=== PATIENT | male | born 1960 | race Caucasian/White ===

== ENCOUNTER 2016-07-04 16:16 | Emergency (ER) | payer MEDICARE, BC, OTHER ==
[~2016-07-04] VITALS: Ht 175.3 cm; Wt 72.6 kg
[~2016-07-04 16:16] MED LIST: /LOR25TA PO; ALPR1TAB3 PO; AMBI10TA PO; BACL-67 PO; HYDR1SOL PO; RYZOLT PO; SOMA350T PO; VOLT1GEL2 TD; ZANA4CAP PO
[2016-07-04] MEDS ORDERED: NS 1,000 ML IV SCH (17:05)
[2016-07-04] MEDS ORDERED: ONDANSETRON 4MG/2ML VIAL (J2405) IV ONE (17:15)
[2016-07-04] MEDS ORDERED: GI COCKTAIL 50ML BTL(HYOSCYAMINE/MAALOX/LIDOCAINE VISCOUS)(1:3:1) PO ONE (17:15)
[2016-07-04 17:22] LABS: BASO % 0.2 % (0.0-1.0); EOS # 0.1 K/mm3 (0.0-0.50); EOS % 0.8 % (0.0-3.0); LARGE UNSTAINED CELL # 0.2 K/mm3 (0.0-0.4); LARGE UNSTAINED CELL % 1.2 % (0.0-4.0); LYMPH % 14.4 % (24.0-44.0); MEAN CORPUSCULAR HEMOGLOBIN 28.7 pg (27.0-33.0); MEAN CORPUSCULAR HGB CONC 32.2 g/dl (32.0-36.5); MEAN CORPUSCULAR VOLUME 88.9 fl (80.0-96.0); MONO # 0.6 K/mm3 (0.0-0.8); MONO % 4.3 % (0.0-5.0); NEUTROPHILS # 10.9 K/mm3 (1.8-7.7); NEUTROPHILS % 79.1 % (36.0-66.0); PLATELET COUNT, AUTOMATED 278 k/mm3 (150-450); RED CELL DISTRIBUTION WIDTH 14.3 % (11.5-14.5); WHITE BLOOD COUNT 13.8 K/mm3 (4.0-10.0)
[2016-07-04] MEDS ORDERED: GASTROGRAFIN SOLUTION 30ML (Q9963) PO ONE ×2 (17:25→17:55)
[2016-07-04] MEDS: MORPHINE 4 MG/ML 1ML SYRINGE IV PRN ×2 (17:26→18:22)
[2016-07-04 17:28] LABS: INR 0.93
[2016-07-04 17:47] LABS: ALBUMIN 4.5 GM/DL (3.2-5.2); ALBUMIN/GLOBULIN RATIO 1.25 (1.00-1.93); ALKALINE PHOSPHATASE 44 U/L (45-117); ALT/SGPT 25 U/L (12-78); AMYLASE 71 U/L (25-115); ANION GAP 6 MEQ/L (8-16); AST/SGOT 20 U/L (15-37); BILIRUBIN,DIRECT 0.2 MG/DL (0.0-0.2); BLOOD UREA NITROGEN 14 MG/DL (7-18); CALCIUM LEVEL 9.4 MG/DL (8.5-10.1); CARBON DIOXIDE LEVEL 28 MEQ/L (21-32); CHLORIDE LEVEL 104 MEQ/L (98-107); CREATININE FOR GFR 0.81 MG/DL (0.70-1.30); GLOMERULAR FILTRATION RATE > 60.0 (>56); GLUCOSE, FASTING 102 MG/DL (70-105); POTASSIUM SERUM 3.9 MEQ/L (3.5-5.1); SODIUM LEVEL 138 MEQ/L (136-145); TOTAL PROTEIN 8.1 GM/DL (6.4-8.2)
[2016-07-04] MEDS ORDERED: ISOVUE-370 76% 100ML VIAL (Q9967) As Ordered ONE (18:10)
--- NOTE | 2016-07-04 19:37 | REP ---
CT ABDOMEN AND PELVIS WITH IV CONTRAST: REASON: Upper abdominal pain. COMPARISON: None. CONTRAST: 100 mL Isovue-370. The lung bases are clear with the exception of a partially imaged pleural based 4 mm sized nodule. The liver, gallbladder, spleen, pancreas, adrenal glands, and kidneys are within normal limits. Incidental note is made of a tiny 5 mm sized focal area of low density in the posterior segment of the right lobe of the liver too small for CT characterization but likely representing a tiny simple cyst. The abdominal aorta and paraortic regions are within normal limits. The bowel loops and their mesenteries are within normal limits with the exception of a single loop of small bowel in the upper abdomen which is gas filled and mildly dilitated. There is no free fluid or free air. There is no mass or adenopathy. CT PELVIS: The bowel loops and their mesenteries are within normal limits. There is no free fluid or free air. There is no mass or adenopathy. There is corpora amylacea and there are incidental bilateral pelvic phleboliths. Bone window technique throughout the exam shows the osseous structures to be within normal limits for the patient's age. Age related spinal degenerative changes are noted. IMPRESSION: CT findings are within normal limits. It should be stated that there is 1 loop of small bowel in the upper abdomen which is gas filled and mildly dilated. This is nonspecific. This potentially represents a transition possible secondary to a transient area of narrowing. The small bowel is otherwise unremarkable in appearance. Signed by Heath Rao DO 07/04/2016 07:44 P
[2016-07-04] MEDS ORDERED: PANTOPRAZOLE 40MG INJ (PROTONIX) (C9113) IV ONE (19:45)
[2016-07-04] MEDS ORDERED: MORPHINE 4 MG/ML 1ML SYRINGE IV ONE (19:45)
[2016-07-04] MEDS ORDERED: PROT1TAB2 PO (20:47)
[2016-07-04 20:59] VITALS: BP 121/70
--- NOTE | 2016-07-05 14:59 | ED PDOC ---
Post-Departure Follow-Up dr ragsdale faxed formal report of ct abd/p for fu Sandra Carbajal MD Jul 05, 2016 14:59
--- NOTE | 2016-07-06 09:07 | ECGEPIP ---
Stationary ECG Study [facility] - ED Test Date: 2016-07-04 Pat Name: AKIRA BRIZUELA Department: Room: - Gender: M Uniformer: tk : 1960 Requested By: AKIRA Hill Order Number: [id number] Reading MD: Jaki Aguilar Measurements Intervals Diamond Rate: 62 P: 71 NE: 142 QRS: 58 QRSD: 106 T: 42 QT: 414 QTc: 422 Interpretive Statements SINUS RHYTHM POSSIBLE LEFT VENTRICULAR HYPERTROPHY NSTTW ABNORMALITY SIMILAR 12/03/15 Electronically Signed On 07-06-2016 9:07:17 EDT by Jaki Aguilar
== END 2016-07-04 21:01 | disposition home or self-care (01) ==
LOC: M ED 17:26
DX: R10.13 Epigastric pain (principal)
CPT/HCPCS: 74177; 80048; 80076; 82150; 82550; 82553; 83690; 84484; 85025; 85610; 85730; 93005; 93041; 94760; 96361; 96374; 96375; 96376; 99285; C9113; J2405; Q9963; Q9967

== ENCOUNTER → 2016-09-24 | Outpatient (CLI) | payer MEDICARE, BC, OTHER ==
[~2016-09-24] MED LIST changes: -BACL-67 PO; +BACL1TAB9 PO; +E-Z-GAS II EFFERVESCENT PACKET (SODIUM BICARB./CITRIC ACID/SIMETHICONE) As Ordered ONE; +E-Z-HD 98% w/w 340GM SUSP BTL As Ordered ONE; +E-Z-PAQUE 96% w/w SUSP 176GM BTL As Ordered ONE; +PROT1TAB2 PO
--- NOTE | 2016-09-25 09:49 | REP ---
Clinical: dysphagia and gastroesophageal reflux. Technique: Single contrast and double contrast technique using barium sulfate substrates. Findings: Normal motility through the oropharynx and hypopharynx is appreciated without obvious mass/mass effect or contour abnormality. The esophagus demonstrates normal mucosal outline and distension without ulcerations, polyps, mass lesions, mucosal irregularities or extrinsic abnormalities. No areas of stenosis or stricture appreciated. No hiatal hernia or evidence for reflux during examination. Limited evaluation of the stomach demonstrates normal gastric rugal folds. Total fluoroscopic time: 1 minute 21 seconds . Impression: Normal esophagram/barium swallow study. Signed by Micah Desai MD 09/25/2016 09:40 A
== END ==
LOC: M RAD 08:37
PROVIDERS: ATTEND Otolaryngology
DX: K21.9 Gastro-esophageal reflux disease without esophagitis (principal)

== ENCOUNTER → 2016-09-30 | Outpatient (CLI) | payer MEDICARE, BC, OTHER ==
[~2016-09-30] MED LIST changes: -E-Z-GAS II EFFERVESCENT PACKET (SODIUM BICARB./CITRIC ACID/SIMETHICONE) As Ordered ONE; -E-Z-HD 98% w/w 340GM SUSP BTL As Ordered ONE; -E-Z-PAQUE 96% w/w SUSP 176GM BTL As Ordered ONE; +ISOVUE-370 76% 100ML VIAL (Q9967) As Ordered ONE
--- NOTE | 2016-09-30 09:55 | REP ---
CT CHEST WITH IV CONTRAST : TECHNIQUE: Axial contrast enhanced images from the thoracic inlet to the upper abdomen using 100 mL Isovue 370 intravenous contrast material with multiplanar reformations. Comparison CT 07/04/2016. The nodular opacity previously seen in the left lung base represents linear subpleural scarring in the left lower lobe. In the left apex there is a tiny calcified granuloma. In the right lung along the major fissure on image 76 is an insignificant 2 mm nodular opacity. There is a calcified granuloma in the right middle lobe. There are two calcified granulomas in the right lower lobe. There are other scattered minor linear areas of scarring. No suspicious nodular opacities are seen. Normal sized lymph nodes are seen in the mediastinal and hilar regions with significant adenopathy. Heart is normal in size. There is no pleural or pericardial effusion. Thoracic aorta is normal in size with no aneurysm or dissection. Visualized upper abdominal structures are unremarkable. IMPRESSION: Chronic changes in the lungs with no suspicious nodular opacities. Signed by Isaias Noel MD 09/30/2016 04:24 P
== END ==
LOC: M RAD 08:01
PROVIDERS: ATTEND Thoracic Surgery (Cardiothoracic Vascular Surgery)
DX: R91.1 Solitary pulmonary nodule (principal)
CPT/HCPCS: 71260; Q9967

== ENCOUNTER → 2016-10-15 | Outpatient (CLI) | payer MEDICARE, OTHER ==
[~2016-10-15] MED LIST changes: -ISOVUE-370 76% 100ML VIAL (Q9967) As Ordered ONE
--- NOTE | 2016-11-02 23:26 | ECWPNPC ---
PATIENT NAME: AKIRA BRIZUELA : 1960 GENDER: MALE VISIT DATE: 10/15/2016 DISCHARGE DATE: 10/15/16 1358 VISIT LOCKED DATE TIME: PHYSICIAN: BRENNA CLEMENTS RESOURCE: BRENNA CLEMENTS REASON FOR APPOINTMENT 1. BACK PAIN HISTORY OF PRESENT ILLNESS NEW PATIENT CONSULT: WHEN DID YOUR PAIN FIRST START? . BRIEFLY DESCRIBE HOW YOUR PAIN STARTED? . HOW DOES YOUR PAIN CHANGE WITH TIME? . DOES YOUR PAIN AWAKEN YOU FROM SLEEP? . HOW MANY HOURS OF SLEEP DO YOU NORMALLY GET? . ANY DIAGNOSTIC TESTING? . FACILITY WHERE TESTS WERE DONE? ____. PAIN TREATMENT TREATMENT YES CANCER HAVE YOU EVER HAD ANY TYPE OF CANCER?NO NO. 56 YEAR OLD MALE PATIENT WITH HISTORY OF CHRONIC LOW BACK PAIN. PATIENT DESCRIBES THE PAIN ACHING AND BURNING WITH A PAIN SCORE OF 5/10. MR. BRIZUELA REPORTS HIS PAIN STARTING MANY YEARS AGO AND SINCE THEN HAS HAD 4 BACK SURGERIES AND STATES THEY DID NOT HELP. PATIENT IS CURRENTLY USING BACLOFEN AND HYDROCODONE FOR PAIN MANAGEMENT. MR. BRIZUELA STATES THAT SITTING AND LAYING DOWN INCREASES THE PAIN THE MOST BUT WALKING HELPS TO RELIEVE THE PAIN. PATIENT STATES PHYSICAL THERAPY HAS NOT HELPED IN THE PAST AND REPORTS HE IS A CANDIDATE FOR SURGERY. PATIENT DENIES UNEXPLAINABLE WEIGHT LOSS, FEVER, CHILLS, NEW CHANGES ON HIS URINARY OR BOWEL CONTROL. PAIN SCREENING: PATIENT HAS A COMPLAINT OF ACUTE OR CHRONIC PAIN :YES FALL RISK SCREENING: SCREENING :NO FALLS IN THE PAST YEAR SOLIMAN INVENTORY: QUESTIONNAIRE ASSESSEDTBD SCORE VALUE CALCULATED TBD CURRENT MEDICATIONS TAKING XANAX 1 MG TABLET 1 TABLET ORALLY ONCE DAILY TAKING HYDROCODONE-ACETAMINOPHEN 10-325 MG TABLET 1 TABLET NEEDED ORALLY FOUR TIMES DAILY NEEDED TAKING BACLOFEN 10 MG TABLET 1 TABLET WITH FOOD OR MILK ORALLY THREE TIMES A DAY TAKING CELECOXIB 200 MG CAPSULE 1 CAPSULE WITH FOOD ORALLY TWICE DAILY MEDICATION LIST REVIEWED AND RECONCILED WITH THE PATIENT PAST MEDICAL HISTORY ARTHRITIS LOW BACK PAIN HEART [facility] SOCIAL HISTORY GENERAL: PAIN CLINIC PFS, CLERGY, PUBLIC HEALTH REFERRALS CLERGY REFERRAL NEEDED?NO WAS THE PROVIDER NOTIFIED OF ANY PERTINENT INFO?NO PFS REFERRAL NEEDED?NO PUBLIC HEALTH REFERRAL NEEDED?NO PATIENT: ____. REVIEW OF SYSTEMS REVIEWED BY: PROVIDER: BRENNA CLEMENTS MD . CONSTITUTIONAL: ANY CHANGE IN YOUR MEDICAL CONDITION? NO . CHILLS NO . FEVER NO . INFECTION: DO YOU HAVE NEW INFECTIONS? NO . DO YOU HAVE HISTORY OF MRSA? NO . MUSCULOSKELETAL: ANY NEW PATTERNS OF PAIN OR NUMBNESS? YES . SYTEMIC LUPUS NO . GASTROENTEROLOGY: ANY NEW CHANGE IN BOWEL CONTROL? NO . BARRETTS ESOPHAGUS NO . CIRRHOSIS NO . HEPATITIS NO . LIVER FAILURE NO . ACID REFLUX NO . UNEXPLAINED WEIGHT LOSS NO . GENITOURINARY: ANY NEW CHANGE IN BLADDER CONTROL? NO . IS THERE A CHANCE YOU COULD BE ? NO . HEMATOLOGY/LYMPH: DO YOU TAKE ANY BLOOD THINNERS? (FOR EXAMPLE- COUMADIN, PLAVIX, AGGRENOX, PLATEL, PRADAXA, OR XARELTO) NO . WHEN WAS YOUR LAST DOSE? DATE: TIME: . LOW PLATELET COUNT NO . SICKLE CELL DISEASE NO . VON WILLIEBRANDS NO . FACTOR V LEIDEN NO . THALLASEMIA NO . ANEMIA NO . EASY BRUISING NO . NEUROLOGY: HAVE YOU FALLEN IN THE PAST 6 MONTHS? NO . ANY NEW EXTREMITY NUMBNESS OR WEAKNESS? YES,RIGHT LEG AND ELBOW . HEAD INJURY NO . DEMENTIA NO . CEREBRAL PALSY NO . MULTIPLE SCLEROSIS NO . DIZZINESS NO . HEADACHE NO . STROKES NO . VERTIGO NO . CARDIOLOGY: DO YOU HAVE A PACEMAKER OR DEFIBRILLATOR? NO . ANGINA NO . HEART ATTACK NO . HEART SURGERY NO . CONGESTIVE HEART FAILURE/FLUID OVERLOAD NO . CHEST PAIN NO . HIGH BLOOD PRESSURE NO . IRREGULAR HEART BEAT NO . RESPIRATORY: HAVE YOU BEEN SICK IN THE PAST WEEK? NO . FEVER NO . FLU LIKE SYMPTOMS? NO . CPAP NO . BYPAP NO . ASTHMA NO . EMPHYSEMA NO . CHRONIC LUNG DISEASES NO . SHORTNESS OF BREATH ON EXERTION NO . DO YOU USE ANY TYPE OF TOBACCO (SMOKE, SMOKELESS, CHEW)? YES . COUGH YES, PRODUCTIVE, CLEAR SPUTUM . SNORING NO . INTEGUMENTARY: DO YOU HAVE ANY RASHES OR OPEN SORES? NO . ALLERGIC/IMMUNO: ARE YOU ALLERGIC TO SHELLFISH OR IV DYE? NO . ANY NEW ALLERGIES? NO . PSYCHIATRIC: DO YOU HAVE THOUGHTS OF HURTING YOURSELF OR SOMEONE ELSE? NO . ARE YOU ABUSED, NEGLECTED, OR IN AN UNSAFE ENVIRONMENT? NO . ENDOCRINOLOGY: ARE YOU DIABETIC? NO . THYROID DISORDER NO . OTHER: DO YOU NEED ANY PRESCRIPTIONS? NO . IF YES, PLEASE LIST: ____ . ANY NEW PROBLEMS WITH YOUR MEDICATIONS? NO . WHEN DID YOU LAST EAT? ____ . WHEN DID YOU LAST DRINK? ____ . WHAT DID YOU LAST DRINK? ____ . NAME OF PERSON DRIVING YOU HOME? ____ . DO YOU HAVE ANY OTHER QUESTIONS OR CONCERNS NO . VITAL SIGNS WT 164.6 LBS, HT 69", BMI 24.30 INDEX, BP 142/79 MM HG, HR 83 /MIN, RR 16 /MIN, TEMP 98.6 F, OXYGEN SAT % 98%, NA INITIALS TL 1303, REVIEWED BY: VD. EXAMINATION : PATIENT IS ALERT O X 3 AND COOPERATIVE. TENDERNESS IN THE LOWER BACK AND PARASPINAL MUSCLE GROUP. MRI OF THE LUMBAR SPINE DONE ON 09/24/16 SHOWS POST OPERATIVE CHANGES, PARS DEFECT AT L4-L5, AND DISC PROTRUSION AT L2-L3. ASSESSMENTS POSTLAMINECTOMY SYNDROME, NOT ELSEWHERE CLASSIFIED - M96.1 (PRIMARY) INTERVERTEBRAL DISC DISORDERS WITH RADICULOPATHY, LUMBAR REGION - M51.16 TREATMENT POSTLAMINECTOMY SYNDROME, NOT ELSEWHERE CLASSIFIED NOTES: WE DISCUSSED SEVERAL ISSUES WITH MR. BRIZUELA'S PAIN MANAGEMENT CASE. AT THIS TIME THE PATIENT WILL CONTINUE WITH THE SAME MEDICATION REGIME BEFORE. AT THIS TIME I WOULD LIKE TO DISCUSS THE PATIENT'S CASE WITH THE NEUROSURGEON HE STATES HE IS A CANDIDATE FOR ANOTHER SURGERY BUT WOULD LIKE TO TRY INTERVENTIONS PRIOR TO SURGERY. AFTER I DISCUSS THE CASE WITH THE NEUROSURGEON I WOULD LIKE THE PATIENT TO RETURN TO THE CLINIC IS 2 WEEKS. INSTRUCTIONS WERE GIVEN, QUESTIONS WERE ANSWERED, PATIENT REPORTS UNDERSTANDING AND AGREES WITH THE PLAN. I, MANDA BRYAN, DOCUMENTED THE ABOVE INFORMATION ACTING A SCRIBE FOR DR. CLEMENTS. I HAVE REVIEWED THE ABOVE DOCUMENT, WRITTEN BY MANDA KING AND I VERIFY THAT IT IS ACCURATE. DEAR DR. ABURTO:THANK YOU FOR YOUR KIND REFERRAL OF MR. BRIZUELA. YOU WANT TO DISCUSS HER CASE WITH ME PLEASE CALL ME AT THE PAIN CENTER AT [phone]. SINCERELY,BRENNA CLEMENTS, [facility]. PROCEDURE CODES FA211 ESTABILISHED PATIENT [facility] CHARGE [id number] DOC MEDS VERIFIED W/PT OR RE U1442 PAIN ASSESS POS TOOL F/U PLAN DOC DISPOSITION & COMMUNICATION FOLLOW UP 3 WEEKS ELECTRONICALLY SIGNED BY BRENNA CLEMENTS MD ON 11/02/2016 AT 08:14 AM EDT DISCLAIMER : THIS IS A VISIT SUMMARY EXTRACTED FROM THE [employer] CHART. IT IS NOT A COPY OF THE [employer] PROGRESS NOTE. DAINA
== END ==
LOC: M PAIN 12:40
PROVIDERS: ATTEND Anesthesiology
DX: M96.1 Postlaminectomy syndrome, not elsewhere classified (principal); M51.16 Intervertebral disc disorders with radiculopathy, lumbar region; M19.90 Unspecified osteoarthritis, unspecified site; F17.200 Nicotine dependence, unspecified, uncomplicated; Z79.899 Other long term (current) drug therapy

== ENCOUNTER → 2016-10-28 | Outpatient (CLI) | payer MEDICARE, BC, OTHER ==
--- NOTE | 2016-11-11 00:32 | ECWPNPC ---
PATIENT NAME: AKIRA BRIZUELA : 1960 GENDER: MALE VISIT DATE: 10/28/2016 DISCHARGE DATE: 10/28/16 1641 VISIT LOCKED DATE TIME: PHYSICIAN: BRENNA CLEMENTS RESOURCE: BRENNA CLEMENTS REASON FOR APPOINTMENT 1. BACK PAIN HISTORY OF PRESENT ILLNESS HISTORY OF PRESENT ILLNESS: PAIN THE PATIENT DESCRIBES THE PAIN... 56 YEAR OLD MALE PATIENT WITH HISTORY OF CHRONIC LOW BACK PAIN. PATIENT DESCRIBES THE PAIN ACHING AND BURNING WITH A PAIN SCORE OF 5/10. MR. BRIZUELA REPORTS HIS PAIN STARTING MANY YEARS AGO AND SINCE THEN HAS HAD 4 BACK SURGERIES AND STATES THEY DID NOT HELP. PATIENT IS CURRENTLY USING BACLOFEN AND HYDROCODONE FOR PAIN MANAGEMENT. MR. BRIZUELA STATES THAT SITTING AND LAYING DOWN INCREASES THE PAIN THE MOST BUT WALKING HELPS TO RELIEVE THE PAIN. PATIENT STATES PHYSICAL THERAPY HAS NOT HELPED IN THE PAST AND REPORTS HE IS A CANDIDATE FOR SURGERY. PATIENT DENIES UNEXPLAINABLE WEIGHT LOSS, FEVER, CHILLS, NEW CHANGES ON HIS URINARY OR BOWEL CONTROL. FALL RISK SCREENING: SCREENING :NO FALLS IN THE PAST YEAR CURRENT MEDICATIONS TAKING XANAX 1 MG TABLET 1 TABLET ORALLY ONCE DAILY TAKING HYDROCODONE-ACETAMINOPHEN 10-325 MG TABLET 1 TABLET NEEDED ORALLY FOUR TIMES DAILY NEEDED TAKING BACLOFEN 10 MG TABLET 1 TABLET WITH FOOD OR MILK ORALLY THREE TIMES A DAY TAKING CELECOXIB 200 MG CAPSULE 1 CAPSULE WITH FOOD ORALLY TWICE DAILY MEDICATION LIST REVIEWED AND RECONCILED WITH THE PATIENT PAST MEDICAL HISTORY ARTHRITIS LOW BACK PAIN HEART [facility] ALLERGIES N.K.D.A. REVIEW OF SYSTEMS REVIEWED BY: PROVIDER: BRENNA CLEMENTS MD . CONSTITUTIONAL: ANY CHANGE IN YOUR MEDICAL CONDITION? NO . CHILLS NO . FEVER NO . INFECTION: DO YOU HAVE NEW INFECTIONS? NO . DO YOU HAVE HISTORY OF MRSA? NO . MUSCULOSKELETAL: ANY NEW PATTERNS OF PAIN OR NUMBNESS? YES, LEFT LEG JUMPS AND SPASMS AND SHOOTING PAIN. . GASTROENTEROLOGY: ANY NEW CHANGE IN BOWEL CONTROL? NO . GENITOURINARY: ANY NEW CHANGE IN BLADDER CONTROL? NO . IS THERE A CHANCE YOU COULD BE ? NO . HEMATOLOGY/LYMPH: DO YOU TAKE ANY BLOOD THINNERS? (FOR EXAMPLE- COUMADIN, PLAVIX, AGGRENOX, PLATEL, PRADAXA, OR XARELTO) NO . WHEN WAS YOUR LAST DOSE? DATE: TIME: . NEUROLOGY: HAVE YOU FALLEN IN THE PAST 6 MONTHS? NO . ANY NEW EXTREMITY NUMBNESS OR WEAKNESS? NO . CARDIOLOGY: DO YOU HAVE A PACEMAKER OR DEFIBRILLATOR? NO . RESPIRATORY: HAVE YOU BEEN SICK IN THE PAST WEEK? NO . FEVER NO . FLU LIKE SYMPTOMS? NO . COUGH NO . INTEGUMENTARY: DO YOU HAVE ANY RASHES OR OPEN SORES? NO . ALLERGIC/IMMUNO: ARE YOU ALLERGIC TO SHELLFISH OR IV DYE? NO . ANY NEW ALLERGIES? NO . PSYCHIATRIC: DO YOU HAVE THOUGHTS OF HURTING YOURSELF OR SOMEONE ELSE? NO . ARE YOU ABUSED, NEGLECTED, OR IN AN UNSAFE ENVIRONMENT? NO . ENDOCRINOLOGY: ARE YOU DIABETIC? NO . OTHER: DO YOU NEED ANY PRESCRIPTIONS? NO . IF YES, PLEASE LIST: ____ . ANY NEW PROBLEMS WITH YOUR MEDICATIONS? NO . WHEN DID YOU LAST EAT? ____ . WHEN DID YOU LAST DRINK? ____ . WHAT DID YOU LAST DRINK? ____ . NAME OF PERSON DRIVING YOU HOME? ____ . DO YOU HAVE ANY OTHER QUESTIONS OR CONCERNS YES, WHAT DID MY MRI SAY? . VITAL SIGNS WT 157.0 LBS, HT 69", BMI 23.18 INDEX, BP 130/87 MM HG, HR 80 /MIN, RR 16 /MIN, TEMP 99.4 F, OXYGEN SAT % 98%, NA INITIALS AW 1517, REVIEWED BY: RIK. EXAMINATION : PATIENT IS ALERT O X 3 AND COOPERATIVE. TENDERNESS IN THE LOWER BACK AND PARASPINAL MUSCLE GROUP. PATIENT REPORTS RIGHT LEG NUMBNESS. RIGHT LEG WEAKER THEN THE LEFT AT EXTENSION AND FLEXION. MRI OF THE LUMBAR SPINE DONE ON 09/24/16 SHOWS POST OPERATIVE CHANGES, PARS DEFECT AT L4-L5, AND DISC PROTRUSION AT L2-L3. 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 BRIZUELA'S PAIN MANAGEMENT CASE. AT THIS TIME THE PATIENT WILL CONTINUE WITH THE SAME MEDICATION REGIME BEFORE. AFTER SPEAKING WITH DR. ABURTO WE AGREED THAT THE BEST APPROACH TO AID THE PATIENT IN PAIN RELIEF WOULD BE TO MOVE FORWARD WITH A LUMBAR TRANSFORAMINAL. WE DISCUSSED DOING THE TRANSFORAMINAL AT LEVELS L3 AND L4. WE DISCUSSED THE RISKS, BENEFITS, AND ALTERNATIVES OF THE INJECTION AND AT THIS TIME THE PATIENT WOULD LIKE TO PROCEED. WE ALSO DISCUSSED THE POSSIBILITY OF DOING A FACET BLOCK. WE WILL DECIDE THE DAY OF THE INJECTION. INSTRUCTIONS WERE GIVEN, QUESTIONS WERE ANSWERED, PATIENT REPORTS UNDERSTANDING AND AGREES WITH THE PLAN. I, MANDA BRYAN, DOCUMENTED THE ABOVE INFORMATION ACTING A SCRIBE FOR DR. CLEMENTS. I HAVE REVIEWED THE ABOVE DOCUMENT, WRITTEN BY MANDA KING AND I VERIFY THAT IT IS ACCURATE. PROCEDURE CODES FA211 ESTABILISHED PATIENT [facility] CHARGE G8427 DOC MEDS VERIFIED W/PT OR RE G8730 PAIN ASSESS POS TOOL F/U PLAN DOC DISPOSITION & COMMUNICATION FOLLOW UP 3 WEEKS ELECTRONICALLY SIGNED BY BRENNA CLEMENTS MD ON 11/10/2016 AT 04:24 PM EDT DISCLAIMER : THIS IS A VISIT SUMMARY EXTRACTED FROM THE [employer] CHART. IT IS NOT A COPY OF THE [employer] PROGRESS NOTE. MTDD
== END ==
LOC: M PAIN 15:20
PROVIDERS: ATTEND Anesthesiology
DX: M96.1 Postlaminectomy syndrome, not elsewhere classified (principal); M51.16 Intervertebral disc disorders with radiculopathy, lumbar region; M47.816 Spondylosis without myelopathy or radiculopathy, lumbar region; G89.29 Other chronic pain; M54.5 Low back pain; Z79.891 Long term (current) use of opiate analgesic; Z79.899 Other long term (current) drug therapy; Z79.1 Long term (current) use of non-steroidal anti-inflammatories (NSAID)

== ENCOUNTER → 2016-11-10 | Outpatient (CLI) | payer MEDICARE, BC, OTHER ==
[~2016-11-10] MED LIST changes: +BUPIVACAINE HCL 0.25% 30 ML VIAL As Ordered ONE; +ISOVUE-M 300 61% 15ML VIAL (Q9967) As Ordered ONE; +LIDOCAINE 1% SDV INJ 30 ML VIAL As Ordered ONE; +MIDAZOLAM INJ 2 MG/2 ML VIAL (J2250) As Ordered ONE; +TRIAMCINOLONE ACETONIDE SUSP 40 MG/ML VIAL (J3301) As Ordered ONE; +fentaNYL 100 MCG/2 ML INJECTION (J3010) As Ordered ONE
--- NOTE | 2016-11-10 15:11 | REP ---
PARTIAL LUMBAR SPINE SERIES: Two views. HISTORY: Injection procedure for pain. 22 seconds of fluoroscopy time for FINDINGS: A sequence of two last image hold fluoro spot radiographs of the lumbar spine document various needle positions and contrast injections associated with injection procedure. Signed by Johnny Hutchins MD 11/10/2016 03:36 P
--- NOTE | 2016-11-24 23:31 | ECWPNPC ---
PATIENT NAME: AKIRA BRIZUELA : 1960 GENDER: MALE VISIT DATE: 11/10/2016 DISCHARGE DATE: 11/10/16 1519 VISIT LOCKED DATE TIME: PHYSICIAN: BRENNA CLEMENTS RESOURCE: BRENNA CLEMENTS REASON FOR APPOINTMENT 1. BILATERAL LOW BACK FACET BLOCK THERAPEUTIC HISTORY OF PRESENT ILLNESS HISTORY OF PRESENT ILLNESS: PAIN THE PATIENT DESCRIBES THE PAIN... FALL RISK SCREENING: SCREENING :NO FALLS IN THE PAST YEAR CURRENT MEDICATIONS TAKING XANAX 1 MG TABLET 1 TABLET ORALLY ONCE DAILY, NOTES: 11/09/16 0200 1/2 TAB TAKING HYDROCODONE-ACETAMINOPHEN 10-325 MG TABLET 1 TABLET NEEDED ORALLY FOUR TIMES DAILY NEEDED, NOTES: 11/10/16 1000 TAKING BACLOFEN 10 MG TABLET 1 TABLET WITH FOOD OR MILK ORALLY THREE TIMES A DAY, NOTES: 11/10/16 1000 DISCONTINUED CELECOXIB 200 MG CAPSULE 1 CAPSULE WITH FOOD ORALLY TWICE DAILY MEDICATION LIST REVIEWED AND RECONCILED WITH THE PATIENT PAST MEDICAL HISTORY ARTHRITIS LOW BACK PAIN HEART [facility] SOCIAL HISTORY GENERAL: TOBACCO USE ARE YOU A:CURRENT SMOKER HOW MANY CIGARETTES A DAY DO YOU SMOKE?6-10 HOW SOON AFTER YOU WAKE UP DO YOU SMOKE YOUR FIRST CIGARETTE?31-60 MIN HOW OFTEN DO YOU SMOKE CIGARETTES?EVERY DAY PATIENT COUNSELED ON THE DANGERS OF TOBACCO USE AND URGED TO QUIT:11/10/2016 ARE YOU INTERESTED IN QUITTING?THINKING ABOUT QUITTING PREVIOUS QUIT ATTEMPTS?YES, MORE THAN 6 MONTHS AGO. COUNSELED THE PATIENT ON SMOKING CESSATION, EDUCATION [id number] ALCOHOL SCREENING POINTS: 1, INTERPRETATION: NEGATIVE. RECREATIONAL DRUG USE DENIES. CAFFEINE 1 CUP DAILY. SEXUAL HX HAD SEX IN THE LAST 12 MONTHS (VAGINAL, ORAL, OR ANAL)?: YES, WITH: WOMEN ONLY, USE PROTECTION?: NO, HAVE YOU EVER HAD AN STD?: NO. HIV / HEP-C SCREENING HIV TEST OFFERED TO PATIENT:YES DATE OFFERED:07/04/2016 TEST ACCEPTED:NO REASON:PATIENT DECLINED HEP-C TEST OFFERED TO PATIENT:YES DATE OFFERED:07/04/2016 TEST ACCEPTED:NO REASON:PATIENT DECLINED OCCUPATION: RETIRED [employer] TE[employer]. DIET: REGULAR. EXERCISE: TRIES TO DAILY. MARITAL STATUS: . SPIRITISM NO MOSQUE BELIEFS THAT WOULD IMPACT HEALTH CARE. LANGUAGE GEORGIAN. LEARNING BARRIERS / SPECIAL NEEDS BARRIERS TO LEARNING?NO HEARING IMPAIRED?NO VISION IMPAIRED?YES :CORRECTIVE LENSES GLASSES COGNITIVELY IMPAIRED?NO READINESS TO LEARN?YES LEARNING PREFERENCES?NO LEARNING CAPABILITIES PRESENT?YES EMOTIONAL BARRIERS?NO SPECIAL DEVICES?NO SUBSTITUTE BUS DRIVER NEEDED?NO TRAVEL OUTSIDE US: DENIES. DOMESTIC VIOLENCE NONE. REVIEW OF SYSTEMS REVIEWED BY: PROVIDER: . CONSTITUTIONAL: ANY CHANGE IN YOUR MEDICAL CONDITION? NO . CHILLS NO . FEVER NO . INFECTION: DO YOU HAVE NEW INFECTIONS? NO . DO YOU HAVE HISTORY OF MRSA? NO . MUSCULOSKELETAL: ANY NEW PATTERNS OF PAIN OR NUMBNESS? NO . GASTROENTEROLOGY: ANY NEW CHANGE IN BOWEL CONTROL? NO . GENITOURINARY: ANY NEW CHANGE IN BLADDER CONTROL? NO . IS THERE A CHANCE YOU COULD BE ? NO . HEMATOLOGY/LYMPH: DO YOU TAKE ANY BLOOD THINNERS? (FOR EXAMPLE- COUMADIN, PLAVIX, AGGRENOX, PLATEL, PRADAXA, OR XARELTO) NO . WHEN WAS YOUR LAST DOSE? DATE: TIME: . NEUROLOGY: HAVE YOU FALLEN IN THE PAST 6 MONTHS? YES, FELL DOWN THE STAIRS LAST WEEK . ANY NEW EXTREMITY NUMBNESS OR WEAKNESS? NO . CARDIOLOGY: DO YOU HAVE A PACEMAKER OR DEFIBRILLATOR? NO . RESPIRATORY: HAVE YOU BEEN SICK IN THE PAST WEEK? NO . FEVER NO . FLU LIKE SYMPTOMS? NO . COUGH NO . INTEGUMENTARY: DO YOU HAVE ANY RASHES OR OPEN SORES? YES, ABRASION LEFT INNER ELBOW AND SMALL SCAB LEFT LEONARD . ALLERGIC/IMMUNO: ARE YOU ALLERGIC TO SHELLFISH OR IV DYE? NO . ANY NEW ALLERGIES? NO . PSYCHIATRIC: DO YOU HAVE THOUGHTS OF HURTING YOURSELF OR SOMEONE ELSE? NO . ARE YOU ABUSED, NEGLECTED, OR IN AN UNSAFE ENVIRONMENT? NO . ENDOCRINOLOGY: ARE YOU DIABETIC? NO . OTHER: DO YOU NEED ANY PRESCRIPTIONS? NO . IF YES, PLEASE LIST: ____ . ANY NEW PROBLEMS WITH YOUR MEDICATIONS? NO . WHEN DID YOU LAST EAT? 11/09 2099 . WHEN DID YOU LAST DRINK? 11/09 2099 . WHAT DID YOU LAST DRINK? WATER . NAME OF PERSON DRIVING YOU HOME? -KALEIGH . DO YOU HAVE ANY OTHER QUESTIONS OR CONCERNS NO . VITAL SIGNS WT 160 LBS, HT 69", BMI 23.63 INDEX, BP 107/64 MM HG, HR 55 /MIN, RR 16 /MIN, TEMP 98.4 F, OXYGEN SAT % 95%, NA INITIALS SC 13:35, REVIEWED BY: AD. ASSESSMENTS SPONDYLOSIS WITHOUT MYELOPATHY OR RADICULOPATHY, LUMBAR REGION - M47.816 (PRIMARY) SPONDYLOSIS WITHOUT MYELOPATHY OR RADICULOPATHY, LUMBOSACRAL REGION - M47.817 PROCEDURES PN LUMBAR FACET BLOCK THERAPEUTIC PRE PROCEDURE DIAGNOSIS LUMBAR SPONDYLOSIS, LUMBOSACRAL SPONDYLOSIS POST PROCEDURE DIAGNOSIS LUMBAR SPONDYLOSIS, LUMBOSACRAL SPONDYLOSIS PROCEDURE BILATERAL L4-L5 AND BILATERAL L5-S1 LUMBAR FACET THERAPEUTIC BLOCK SURGEON DR. BRENNA LCEMENTS GAS ADJUSTER NONE ANESTHESIA LOCAL WITH IV SEDATION PRE PROCEDURE NOTE THE PATIENT HAS A HISTORY OF CHRONIC LOW BACK PAIN. I EVALUATE THE PATIENT AND REVIEWED THE CHART. I WENT OVER THE RISKS, ALTERNATIVES, AND BENEFITS ASSOCIATED WITH THIS PROCEDURE. PATIENT WOULD LIKE TO MOVE FORWARD WITH IV SEDATION DUE TO DISCOMFORT, PAIN AND ANXIETY ASSOCIATED WITH THE PROCEDURE. THE PATIENT WOULD LIKE TO PROCEED AND GIVE CONSENT TO PERFORMED THE PROCEDURE. THE PATIENT DENIES UNEXPLAINABLE WEIGHT LOSS, FEVER, CHILLS, OR NEW CHANGES IN URINARY OR BOWEL CONTROL DESCRIPTION OF PROCEDURE THE PATIENT WAS BROUGHT TO THE PROCEDURE ROOM AND PLACED IN THE PRONE POSITION. THE LUMBOSACRAL AREA WAS CLEANED WITH CHLORAPREP SOLUTION AND DRAPED ASEPTICALLY. THE PROCEDURE WAS DONE UNDER STERILE CONDITIONS. I CHECKED LATERALITY AND THE LEVEL WHERE THE PROCEDURE WAS GOING TO BE PERFORMED WITH THE PATIENT AND THE SUPPORTING STAFF AT THE MOMENT OF THE TIME OUT IN THE PROCEDURE ROOM. UNDER FLUOROSCOPIC GUIDANCE, THE TARGET POINT WAS SELECTED AT THE RIGHT AND LEFT L4-L5 AND RIGHT AND LEFT L5-S1 FACET JOINT. TARGET POINT WAS SELECTED AFTER LATERAL ROTATION AND TILT OF THE MAGNIFIER OF THE C-ARM. LIDOCAINE 0.5% WAS USED TO NUMB THE SKIN AND THE SUBCUTANEOUS TISSUE BELOW IT. SPINAL NEEDLES, 22-GAUGE, WERE ADVANCED UNDER FLUOROSCOPIC GUIDANCE AND FOLLOWING PATIENT FEEDBACK UNTIL THE TARGETS WERE TOUCHED. THE POSITION OF THE NEEDLES WAS VERIFIED WITH AP AND LATERAL VIEWS. AFTER PROPER POSITION OF THE NEEDLES WAS ACHIEVED, ISOVUE-M DYE 30% 0.1 ML WAS INJECTED SHOWING ADEQUATE SPREAD OF THE DYE. THEN A SOLUTION OF 1.9 ML OF BUPIVACAINE 0.125% OF KENALOG 10 MG WAS INJECTED AT EACH SITE. PATIENT RECEIVED VERSED 3 MG AND FENTANYL 100 MCG IV DIVIDED DOSES. THERE WAS NO EVIDENCE OF BLOOD, PARESTHESIA OR CEREBROSPINAL FLUID DURING THE PROCEDURE. THE PATIENT WAS SENT TO THE RECOVERY ROOM. THE PATIENT WAS MOVING THE EXTREMITIES AND DOING WELL. THERE WAS NO COMPLICATION DURING THE PROCEDURE. FLUOROSCOPY TIME WAS 22 SECONDS. FACE TO FACE TIME WAS 18 MINUTES POST PROCEDURE NOTE THE PATIENT WILL BE SEEN IN A FOLLOW UP IN THE NEXT FEW WEEKS. INSTRUCTIONS WERE GIVEN, QUESTIONS WERE ANSWERED, AND THE PATIENT EXPRESSED UNDERSTANDING AND AGREES WITH THE PLAN. I, MANDA BRYAN, DOCUMENTED THE ABOVE INFORMATION ACTING A SCRIBE FOR DR. CLEMENTS. I, DR. CLEMENTS, HAVE REVIEWED THE ABOVE DOCUMENT, SCRIBED BY MANDA BRYAN, AND I VERIFY THAT IT IS ACCURATE DIAGNOSTIC IMAGING [facility] FACET BLOCK (PAIN)[id number] PROCEDURE CODES 31121 INJ PARAVERT F JNT L/S 1 LEV 06253 INJ PARAVERT F JNT L/S 2 LEV 6045F RADXPS IN END [id number] PXD 74623 MOD SED SAME PHYS/QHP 5/>YRS DISPOSITION & COMMUNICATION FOLLOW UP 3 WEEKS ELECTRONICALLY SIGNED BY BRENNA CLEMENTS MD ON 11/24/2016 AT 08:23 PM EDT DISCLAIMER : THIS IS A VISIT SUMMARY EXTRACTED FROM THE [employer] CHART. IT IS NOT A COPY OF THE [employer] PROGRESS NOTE. MTDD
== END ==
LOC: M PAIN 13:00
PROVIDERS: ATTEND Anesthesiology
DX: G89.29 Other chronic pain (principal); M47.816 Spondylosis without myelopathy or radiculopathy, lumbar region; M47.817 Spondylosis without myelopathy or radiculopathy, lumbosacral region; F17.210 Nicotine dependence, cigarettes, uncomplicated; R01.1 Cardiac murmur, unspecified; M54.5 Low back pain; Z79.891 Long term (current) use of opiate analgesic; Z79.899 Other long term (current) drug therapy
CPT/HCPCS: 64493; 64494; 99152; J2250; J3010; J3301; Q9967

== ENCOUNTER → 2017-01-02 | Outpatient (CLI) | payer MEDICARE, OTHER ==
[~2017-01-02] MED LIST changes: -BUPIVACAINE HCL 0.25% 30 ML VIAL As Ordered ONE; -ISOVUE-M 300 61% 15ML VIAL (Q9967) As Ordered ONE; -LIDOCAINE 1% SDV INJ 30 ML VIAL As Ordered ONE; -MIDAZOLAM INJ 2 MG/2 ML VIAL (J2250) As Ordered ONE; -TRIAMCINOLONE ACETONIDE SUSP 40 MG/ML VIAL (J3301) As Ordered ONE; -fentaNYL 100 MCG/2 ML INJECTION (J3010) As Ordered ONE
--- NOTE | 2017-01-12 00:17 | ECWPNPC ---
PATIENT NAME: AKIRA BRIZUELA : 1960 GENDER: MALE VISIT DATE: 01/02/2017 DISCHARGE DATE: 01/02/17 09 VISIT LOCKED DATE TIME: PHYSICIAN: BRENNA CLEMENTS RESOURCE: BRENNA CLEMENTS REASON FOR APPOINTMENT 1. BACK PAIN HISTORY OF PRESENT ILLNESS HISTORY OF PRESENT ILLNESS: PAIN THE PATIENT DESCRIBES THE PAIN... 56 YEAR OLD MALE PATIENT WITH HISTORY OF CHRONIC LOW BACK PAIN. PATIENT DESCRIBES THE PAIN ACHING WITH THE PAIN COMING AND GOING WITH A PAIN SCORE OF 3/10. PATIENT RECEIVED A LUMBAR FACET BLOCK ON 11/10/16 AND REPORTS HAVING OVER 50% RELIEF FROM PAIN WITH INCREASED MOBILITY AND FUNCTIONALITY. PATIENT STATES HE IS DOING VERY WELL AND HIS PAIN ONLY INCREASES SIGNIFICANTLY WHEN HE OVER DUES. PATIENT IS CURRENTLY USING HYDROCODONE AND BACLOFEN AND STATES HE DOES NOT HAVE TO USE THE MEDICATION OFTEN DUE TO THE INJECTION. PATIENT DENIES UNEXPLAINABLE WEIGHT LOSS, FEVER, CHILLS, NEW CHANGES ON HER URINARY OR BOWEL CONTROL. FALL RISK SCREENING: SCREENING :NO FALLS IN THE PAST YEAR CURRENT MEDICATIONS TAKING XANAX 1 MG TABLET 1 TABLET ORALLY ONCE DAILY TAKING HYDROCODONE-ACETAMINOPHEN 10-325 MG TABLET 1 TABLET NEEDED ORALLY FOUR TIMES DAILY NEEDED TAKING BACLOFEN 10 MG TABLET 1 TABLET WITH FOOD OR MILK ORALLY THREE TIMES A DAY MEDICATION LIST REVIEWED AND RECONCILED WITH THE PATIENT PAST MEDICAL HISTORY ARTHRITIS LOW BACK PAIN HEART MURMUR ALLERGIES N.K.D.A. SOCIAL HISTORY GENERAL: TOBACCO USE ARE YOU A:CURRENT SMOKER HOW MANY CIGARETTES A DAY DO YOU SMOKE?6-10 HOW SOON AFTER YOU WAKE UP DO YOU SMOKE YOUR FIRST CIGARETTE?31-60 MIN HOW OFTEN DO YOU SMOKE CIGARETTES?EVERY DAY PATIENT COUNSELED ON THE DANGERS OF TOBACCO USE AND URGED TO QUIT:11/10/2016 ARE YOU INTERESTED IN QUITTING?THINKING ABOUT QUITTING PREVIOUS QUIT ATTEMPTS?YES, MORE THAN 6 MONTHS AGO. COUNSELED THE PATIENT ON SMOKING CESSATION, EDUCATION [id number]/21/2017 ALCOHOL SCREENING POINTS: 1, INTERPRETATION: NEGATIVE. RECREATIONAL DRUG USE DENIES. CAFFEINE 1 CUP DAILY. SEXUAL HX HAD SEX IN THE LAST 12 MONTHS (VAGINAL, ORAL, OR ANAL)?: YES, WITH: WOMEN ONLY, USE PROTECTION?: NO, HAVE YOU EVER HAD AN STD?: NO. HIV / HEP-C SCREENING HIV TEST OFFERED TO PATIENT:YES DATE OFFERED:07/04/2016 TEST ACCEPTED:NO REASON:PATIENT DECLINED HEP-C TEST OFFERED TO PATIENT:YES DATE OFFERED:07/04/2016 TEST ACCEPTED:NO REASON:PATIENT DECLINED OCCUPATION: RETIRED VEHICLE AND EQUIPMENT CLEANER. DIET: REGULAR. EXERCISE: TRIES TO DAILY. MARITAL STATUS: . YARSANI NO YARSANISM BELIEFS THAT WOULD IMPACT HEALTH CARE. LANGUAGE LAO. LEARNING BARRIERS / SPECIAL NEEDS BARRIERS TO LEARNING?NO HEARING IMPAIRED?NO VISION IMPAIRED?YES :CORRECTIVE LENSES GLASSES COGNITIVELY IMPAIRED?NO READINESS TO LEARN?YES LEARNING PREFERENCES?NO LEARNING CAPABILITIES PRESENT?YES EMOTIONAL BARRIERS?NO SPECIAL DEVICES?NO MS SQL DBA NEEDED?NO PAIN CLINIC PFS, CLERGY, PUBLIC HEALTH REFERRALS PFS REFERRAL NEEDED?NO CLERGY REFERRAL NEEDED?NO PUBLIC HEALTH REFERRAL NEEDED?NO HAS THE PATIENT BEEN EDUCATED REGARDING HIS/HER PLAN OF CARE?YES PLEASE DOCUMENT ANY ADDTIONAL DETAILS. ENCOURAGED COLD, HEAT TO AREAS, USE OF MUSCLE RELAXERS AND CHANGING POSITIONS PAIN INCREASES. HAS THE PATIENT BEEN EDUCATED REGARDING PAIN, THE RISK FOR PAIN, THE IMPORTANCE OF EFFECTIVE PAIN MANAGEMENT, AND THE PAIN ASSESSMENT PROCESS?YES TRAVEL OUTSIDE US: DENIES. DOMESTIC VIOLENCE NONE. REVIEW OF SYSTEMS REVIEWED BY: PROVIDER: BRENNA CLEMENTS MD . CONSTITUTIONAL: ANY CHANGE IN YOUR MEDICAL CONDITION? NO . CHILLS NO . FEVER NO . INFECTION: DO YOU HAVE NEW INFECTIONS? NO . DO YOU HAVE HISTORY OF MRSA? NO . MUSCULOSKELETAL: ANY NEW PATTERNS OF PAIN OR NUMBNESS? NO . GASTROENTEROLOGY: ANY NEW CHANGE IN BOWEL CONTROL? NO . GENITOURINARY: ANY NEW CHANGE IN BLADDER CONTROL? NO . IS THERE A CHANCE YOU COULD BE ? NO . HEMATOLOGY/LYMPH: DO YOU TAKE ANY BLOOD THINNERS? (FOR EXAMPLE- COUMADIN, PLAVIX, AGGRENOX, PLATEL, PRADAXA, OR XARELTO) NO . WHEN WAS YOUR LAST DOSE? DATE: TIME: . NEUROLOGY: HAVE YOU FALLEN IN THE PAST 6 MONTHS? NO . ANY NEW EXTREMITY NUMBNESS OR WEAKNESS? NO . CARDIOLOGY: DO YOU HAVE A PACEMAKER OR DEFIBRILLATOR? NO . RESPIRATORY: HAVE YOU BEEN SICK IN THE PAST WEEK? YES, RESPIRATORY INFECTION . FEVER NO . FLU LIKE SYMPTOMS? NO . COUGH NO . INTEGUMENTARY: DO YOU HAVE ANY RASHES OR OPEN SORES? NO . ALLERGIC/IMMUNO: ARE YOU ALLERGIC TO SHELLFISH OR IV DYE? NO . ANY NEW ALLERGIES? NO . PSYCHIATRIC: DO YOU HAVE THOUGHTS OF HURTING YOURSELF OR SOMEONE ELSE? NO . ARE YOU ABUSED, NEGLECTED, OR IN AN UNSAFE ENVIRONMENT? NO . ENDOCRINOLOGY: ARE YOU DIABETIC? NO . OTHER: DO YOU NEED ANY PRESCRIPTIONS? NO . IF YES, PLEASE LIST: ____ . ANY NEW PROBLEMS WITH YOUR MEDICATIONS? NO . WHEN DID YOU LAST EAT? ____ . WHEN DID YOU LAST DRINK? ____ . WHAT DID YOU LAST DRINK? ____ . NAME OF PERSON DRIVING YOU HOME? ____ . DO YOU HAVE ANY OTHER QUESTIONS OR CONCERNS YES, PAIN IS MUCH LAST FEELS A LOT BETTER . VITAL SIGNS WT 158 LBS, HT 69", BMI 23.33 INDEX, BP 126/73 MM HG, HR 63 /MIN, RR 16 /MIN, TEMP 98.6 F, OXYGEN SAT % 95%, NA INITIALS [id number], REVIEWED BY: CM. EXAMINATION : PATIENT IS ALERT O X 3 AND COOPERATIVE. TENDERNESS IN THE LOWER BACK AND PARASPINAL MUSCLE GROUP. PATIENT REPORTS RIGHT LEG NUMBNESS. RIGHT LEG WEAKER THEN THE LEFT AT EXTENSION AND FLEXION. MRI OF THE LUMBAR SPINE DONE ON 09/24/16 SHOWS POST OPERATIVE CHANGES, PARS DEFECT AT L4-L5, AND DISC PROTRUSION AT L2-L3. 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 BRIZUELA'S PAIN MANAGEMENT CASE. AT THIS TIME THE PATIENT WILL CONTINUE WITH THE SAME MEDICATION REGIME BEFORE. PATIENT RECEIVED A LUMBAR FACET BLOCK ON 11/10/16 AND REPORTS HAVING OVER 50% RELIEF FROM THE PAIN WITH INCREASED MOBILITY AND FUNCTIONALITY SINCE THE INJECTION. AT THIS TIME THE PATIENT REPORTS HE IS DOING WELL AND DOES NOT SEE A NEED FOR INTERVENTIONS AT THIS TIME. PATIENT WILL RETURN TO THE CLINIC IN 2 MONTHS BUT WAS ADVISED TO CALL IF THE PAIN SIGNIFICANTLY INCREASES. INSTRUCTIONS WERE GIVEN, QUESTIONS WERE ANSWERED, PATIENT REPORTS UNDERSTANDING AND AGREES WITH THE PLAN. I, MANDA BRYAN, DOCUMENTED THE ABOVE INFORMATION ACTING A SCRIBE FOR DR. CLEMENTS. I HAVE REVIEWED THE ABOVE DOCUMENT, WRITTEN BY MANDA KING AND I VERIFY THAT IT IS ACCURATE. PROCEDURE CODES FA211 ESTABILISHED PATIENT [facility] FACILITY CHARGE G8427 DOC MEDS VERIFIED W/PT OR RE G8730 PAIN ASSESS POS TOOL F/U PLAN DOC DISPOSITION & COMMUNICATION FOLLOW UP 3 WEEKS ELECTRONICALLY SIGNED BY BRENNA CLEMENTS MD ON 01/11/2017 AT 02:09 PM EDT DISCLAIMER : THIS IS A VISIT SUMMARY EXTRACTED FROM THE [employer] CHART. IT IS NOT A COPY OF THE [employer] PROGRESS NOTE. DAINA
== END ==
LOC: M PAIN 08:30
PROVIDERS: ATTEND Anesthesiology
DX: M96.1 Postlaminectomy syndrome, not elsewhere classified (principal); M47.816 Spondylosis without myelopathy or radiculopathy, lumbar region; M47.817 Spondylosis without myelopathy or radiculopathy, lumbosacral region; F17.210 Nicotine dependence, cigarettes, uncomplicated; Z79.899 Other long term (current) drug therapy

== ENCOUNTER → 2017-02-06 | Outpatient (CLI) | payer MEDICARE, OTHER ==
--- NOTE | 2017-02-24 01:51 | ECWPNPC ---
PATIENT NAME: AKIRA BRIZUELA : 1960 GENDER: MALE VISIT DATE: 02/06/2017 DISCHARGE DATE: 02/06/17 1033 VISIT LOCKED DATE TIME: PHYSICIAN: BRENNA CLEMENTS RESOURCE: BRENNA CLEMENTS REASON FOR APPOINTMENT 1. LOW BACK PAIN HISTORY OF PRESENT ILLNESS HISTORY OF PRESENT ILLNESS: PAIN THE PATIENT DESCRIBES THE PAIN... 56 YEAR OLD MALE PATIENT WITH HISTORY OF CHRONIC LOW BACK PAIN. PATIENT DESCRIBES THE PAIN ACHING WITH THE PAIN COMING AND GOING WITH A PAIN SCORE OF 5/10. PATIENT RECEIVED A LUMBAR FACET BLOCK ON 11/10/16 AND REPORTS HAVING OVER 50% RELIEF FROM PAIN WITH INCREASED MOBILITY AND FUNCTIONALITY FOR OVER TWO MONTHS BUT STATES THAT THE PAIN IS STARTING TO RETURN. PATIENT IS CURRENTLY USING HYDROCODONE AND BACLOFEN FOR PAIN MANAGEMENT. PATIENT DENIES UNEXPLAINABLE WEIGHT LOSS, FEVER, CHILLS, NEW CHANGES ON HER URINARY OR BOWEL CONTROL. FALL RISK SCREENING: SCREENING :NO FALLS IN THE PAST YEAR CURRENT MEDICATIONS TAKING XANAX 1 MG TABLET 1 TABLET ORALLY ONCE DAILY, NOTES: NEEDED TAKING HYDROCODONE-ACETAMINOPHEN 10-325 MG TABLET 1 TABLET NEEDED ORALLY FOUR TIMES DAILY NEEDED TAKING BACLOFEN 10 MG TABLET 1 TABLET WITH FOOD OR MILK ORALLY THREE TIMES A DAY MEDICATION LIST REVIEWED AND RECONCILED WITH THE PATIENT PAST MEDICAL HISTORY ARTHRITIS LOW BACK PAIN HEART MURMUR ALLERGIES NO[ALLERGIES VERIFIED] REVIEW OF SYSTEMS REVIEWED BY: PROVIDER: BRENNA CLEMENTS MD . CONSTITUTIONAL: ANY CHANGE IN YOUR MEDICAL CONDITION? NO . CHILLS NO . FEVER NO . INFECTION: DO YOU HAVE NEW INFECTIONS? NO . DO YOU HAVE HISTORY OF MRSA? NO . MUSCULOSKELETAL: ANY NEW PATTERNS OF PAIN OR NUMBNESS? NO . GASTROENTEROLOGY: ANY NEW CHANGE IN BOWEL CONTROL? NO . GENITOURINARY: ANY NEW CHANGE IN BLADDER CONTROL? NO . IS THERE A CHANCE YOU COULD BE ? NO . HEMATOLOGY/LYMPH: DO YOU TAKE ANY BLOOD THINNERS? (FOR EXAMPLE- COUMADIN, PLAVIX, AGGRENOX, PLATEL, PRADAXA, OR XARELTO) NO . WHEN WAS YOUR LAST DOSE? DATE: TIME: . NEUROLOGY: HAVE YOU FALLEN IN THE PAST 6 MONTHS? NO . ANY NEW EXTREMITY NUMBNESS OR WEAKNESS? NO . CARDIOLOGY: DO YOU HAVE A PACEMAKER OR DEFIBRILLATOR? NO . RESPIRATORY: HAVE YOU BEEN SICK IN THE PAST WEEK? NO . FEVER NO . FLU LIKE SYMPTOMS? NO . COUGH NO . INTEGUMENTARY: DO YOU HAVE ANY RASHES OR OPEN SORES? NO . ALLERGIC/IMMUNO: ARE YOU ALLERGIC TO SHELLFISH OR IV DYE? NO . ANY NEW ALLERGIES? NO . PSYCHIATRIC: DO YOU HAVE THOUGHTS OF HURTING YOURSELF OR SOMEONE ELSE? NO . ARE YOU ABUSED, NEGLECTED, OR IN AN UNSAFE ENVIRONMENT? NO . ENDOCRINOLOGY: ARE YOU DIABETIC? NO . OTHER: DO YOU NEED ANY PRESCRIPTIONS? NO . IF YES, PLEASE LIST: ____ . ANY NEW PROBLEMS WITH YOUR MEDICATIONS? NO . WHEN DID YOU LAST EAT? ____ . WHEN DID YOU LAST DRINK? ____ . WHAT DID YOU LAST DRINK? ____ . NAME OF PERSON DRIVING YOU HOME? ____ . DO YOU HAVE ANY OTHER QUESTIONS OR CONCERNS NO . VITAL SIGNS WT 158 LBS, HT 69", BMI 23.33 INDEX, BP 150/86 MM HG, HR 65 /MIN, RR 16 /MIN, TEMP 98.2 F, OXYGEN SAT % 100%, NA INITIALS SC 09:10, REVIEWED BY: JANIE. EXAMINATION : PATIENT IS ALERT O X 3 AND COOPERATIVE. TENDERNESS IN THE LOWER BACK AND PARASPINAL MUSCLE GROUP. PATIENT REPORTS RIGHT LEG NUMBNESS. RIGHT LEG WEAKER THEN THE LEFT AT EXTENSION AND FLEXION. MRI OF THE LUMBAR SPINE DONE ON 09/24/16 SHOWS POST OPERATIVE CHANGES, PARS DEFECT AT L4-L5, AND DISC PROTRUSION AT L2-L3. 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 BRIZUELA'S PAIN MANAGEMENT CASE. AT THIS TIME THE PATIENT WILL CONTINUE WITH THE SAME MEDICATION REGIME BEFORE. WE BRIEFLY DISCUSSED THE DCS AT THIS TIME, HOWEVER, I WOULD LIKE TO TRY LESS INVASIVE PROCEDURES PRIOR TO THE TRIAL. WE DISCUSSED MOVING FORWARD WITH ANOTHER LUMBAR FACET BLOCK DUE TO THE PATIENT GETTING OVER 2 MONTHS OF PAIN RELIEF. WE DISCUSSED THE RISKS, BENEFITS, AND ALTNERATIVES OF THE INJECTION AND THE PATIENT WOULD LIKE TO PROCEED WITH THE THERAPEUTIC FACET BLOCK AT THIS TIME. WE DISCUSSED MOVING FORWARD WITH A DIAGNOSTIC FACET BLOCK IF THE PATIENT DOESN'T FEEL THE THERAPEUTIC IS GIVING HIM LONG LASTING RELIEF. WE DISCUSSED DOING TWO DIAGNOSTIC TESTS PRIOR TO A RADIOFREQUENCY. WE DISCUSSED THE RISKS, BENENFITS, AND ALTNERATIVES OF MOVING FORWARD WITH THE THERAPEUTIC FACET BLOCK AND THE PATIENT WOULD LIKE TO PROCEED AT THIS TIME. INSTRUCTIONS WERE GIVEN, QUESTIONS WERE ANSWERED, PATIENT REPORTS UNDERSTANDING AND AGREES WITH THE PLAN. I, MANDA BRYAN, DOCUMENTED THE ABOVE INFORMATION ACTING A SCRIBE FOR DR. CLEMENTS. I HAVE REVIEWED THE ABOVE DOCUMENT, WRITTEN BY MANDA KING AND I VERIFY THAT IT IS ACCURATE. PROCEDURE CODES FA211 ESTABILISHED PATIENT [facility] CHARGE G8427 DOC MEDS VERIFIED W/PT OR RE G8730 PAIN ASSESS POS TOOL F/U PLAN DOC DISPOSITION & COMMUNICATION FOLLOW UP LFBT AFTER APPROVAL ELECTRONICALLY SIGNED BY BRENNA CLEMENTS MD ON 02/23/2017 AT 06:36 PM EST DISCLAIMER : THIS IS A VISIT SUMMARY EXTRACTED FROM THE [employer] CHART. IT IS NOT A COPY OF THE [employer] PROGRESS NOTE. DAINA
== END ==
LOC: M PAIN 09:15
PROVIDERS: ATTEND Anesthesiology
DX: M96.1 Postlaminectomy syndrome, not elsewhere classified (principal); M47.816 Spondylosis without myelopathy or radiculopathy, lumbar region; M47.817 Spondylosis without myelopathy or radiculopathy, lumbosacral region; G89.29 Other chronic pain; Z79.891 Long term (current) use of opiate analgesic; Z79.899 Other long term (current) drug therapy

== ENCOUNTER → 2017-02-11 | Outpatient (CLI) | payer MEDICARE, OTHER ==
[~2017-02-11] MED LIST changes: +BUPIVACAINE HCL 0.25% 30 ML VIAL As Ordered ONE; +ISOVUE-M 300 61% 15ML VIAL (Q9967) As Ordered ONE; +LIDOCAINE 1% SDV INJ 30 ML VIAL As Ordered ONE; +TRIAMCINOLONE ACETONIDE SUSP 40 MG/ML VIAL (J3301) As Ordered ONE; +diazePAM 5 MG TAB As Ordered ONE; +oxyCODONE 5MG TAB As Ordered ONE
--- NOTE | 2017-02-11 13:40 | REP ---
Partial lumbar spine series: Eight views . History: Injection procedure for pain. 1 minute seven seconds of fluoroscopy time is reported. Findings: A sequence of eight fluoroscopically obtained last image hold procedural spot radiographs of the lumbar spine document needle position and contrast injection associated with injection procedure. Signed by Johnny Hutchins MD 02/11/2017 01:31 P
--- NOTE | 2017-02-16 23:51 | ECWPNPC ---
PATIENT NAME: AKIRA BRIZUELA : 1960 GENDER: MALE VISIT DATE: 02/11/2017 DISCHARGE DATE: 02/11/17 1225 VISIT LOCKED DATE TIME: PHYSICIAN: BRENNA CLEMENTS RESOURCE: BRENNA CLEMENTS REASON FOR APPOINTMENT 1. LFBT HISTORY OF PRESENT ILLNESS HISTORY OF PRESENT ILLNESS: PAIN THE PATIENT DESCRIBES THE PAIN... FALL RISK SCREENING: SCREENING :NO FALLS IN THE PAST YEAR CURRENT MEDICATIONS TAKING XANAX 1 MG TABLET 1 TABLET ORALLY ONCE DAILY, NOTES: 02/10/17 TAKING HYDROCODONE-ACETAMINOPHEN 10-325 MG TABLET 1 TABLET NEEDED ORALLY FOUR TIMES DAILY NEEDED, NOTES: 02/11/17 0800 TAKING BACLOFEN 10 MG TABLET 1 TABLET WITH FOOD OR MILK ORALLY THREE TIMES A DAY, NOTES: 02/11/17 0800 MEDICATION LIST REVIEWED AND RECONCILED WITH THE PATIENT PAST MEDICAL HISTORY ARTHRITIS LOW BACK PAIN HEART MURMUR ALLERGIES N.K.D.A. SURGICAL HISTORY APPENDECTOMY 1966 THUMB BACK NECK VASECTOMY 2000 SPINAL SURGERY ULNAR TUNNEL RELEASE, RIGHT SOCIAL HISTORY GENERAL: TOBACCO USE ARE YOU A:CURRENT SMOKER ARE YOU INTERESTED IN QUITTING?THINKING ABOUT QUITTING PREVIOUS QUIT ATTEMPTS?YES, MORE THAN 6 MONTHS AGO. COUNSELED THE PATIENT ON SMOKING CESSATION, EDUCATION [id number]/22/2017 HOW MANY CIGARETTES A DAY DO YOU SMOKE?6-10 HOW SOON AFTER YOU WAKE UP DO YOU SMOKE YOUR FIRST CIGARETTE?31-60 MIN HOW OFTEN DO YOU SMOKE CIGARETTES?EVERY DAY PATIENT COUNSELED ON THE DANGERS OF TOBACCO USE AND URGED TO QUIT:02/11/2017 ALCOHOL SCREENING POINTS: 1, INTERPRETATION: NEGATIVE. RECREATIONAL DRUG USE DENIES. CAFFEINE 1 CUP DAILY. SEXUAL HX HAD SEX IN THE LAST 12 MONTHS (VAGINAL, ORAL, OR ANAL)?: YES, WITH: WOMEN ONLY, USE PROTECTION?: NO, HAVE YOU EVER HAD AN STD?: NO. HIV / HEP-C SCREENING HIV TEST OFFERED TO PATIENT:YES DATE OFFERED:07/04/2016 TEST ACCEPTED:NO REASON:PATIENT DECLINED HEP-C TEST OFFERED TO PATIENT:YES DATE OFFERED:07/04/2016 TEST ACCEPTED:NO REASON:PATIENT DECLINED OCCUPATION: RETIRED WIND ENERGY TECHNICIAN. DIET: REGULAR. EXERCISE: TRIES TO DAILY. MARITAL STATUS: . CHURCH NO CHRISTIANITY BELIEFS THAT WOULD IMPACT HEALTH CARE. LANGUAGE ANGOLAN. LEARNING BARRIERS / SPECIAL NEEDS BARRIERS TO LEARNING?NO HEARING IMPAIRED?NO VISION IMPAIRED?YES :CORRECTIVE LENSES GLASSES COGNITIVELY IMPAIRED?NO READINESS TO LEARN?YES LEARNING PREFERENCES?NO LEARNING CAPABILITIES PRESENT?YES EMOTIONAL BARRIERS?NO SPECIAL DEVICES?NO REAL ESTATE RENTAL AGENT NEEDED?NO PAIN CLINIC PFS, CLERGY, PUBLIC HEALTH REFERRALS PFS REFERRAL NEEDED?NO CLERGY REFERRAL NEEDED?NO PUBLIC HEALTH REFERRAL NEEDED?NO HAS THE PATIENT BEEN EDUCATED REGARDING HIS/HER PLAN OF CARE?YES PLEASE DOCUMENT ANY ADDTIONAL DETAILS. ENCOURAGED COLD, HEAT TO AREAS, USE OF MUSCLE RELAXERS AND CHANGING POSITIONS PAIN INCREASES. HAS THE PATIENT BEEN EDUCATED REGARDING PAIN, THE RISK FOR PAIN, THE IMPORTANCE OF EFFECTIVE PAIN MANAGEMENT, AND THE PAIN ASSESSMENT PROCESS?YES TRAVEL OUTSIDE US: DENIES. DOMESTIC VIOLENCE NONE. HOSPITALIZATION/MAJOR DIAGNOSTIC PROCEDURE SURGICALY RELATED REVIEW OF SYSTEMS REVIEWED BY: PROVIDER: . CONSTITUTIONAL: ANY CHANGE IN YOUR MEDICAL CONDITION? NO . CHILLS NO . FEVER NO . INFECTION: DO YOU HAVE NEW INFECTIONS? NO . DO YOU HAVE HISTORY OF MRSA? NO . MUSCULOSKELETAL: ANY NEW PATTERNS OF PAIN OR NUMBNESS? NO . GASTROENTEROLOGY: ANY NEW CHANGE IN BOWEL CONTROL? NO . GENITOURINARY: ANY NEW CHANGE IN BLADDER CONTROL? NO . IS THERE A CHANCE YOU COULD BE ? NO . HEMATOLOGY/LYMPH: DO YOU TAKE ANY BLOOD THINNERS? (FOR EXAMPLE- COUMADIN, PLAVIX, AGGRENOX, PLATEL, PRADAXA, OR XARELTO) NO . WHEN WAS YOUR LAST DOSE? DATE: TIME: . NEUROLOGY: HAVE YOU FALLEN IN THE PAST 6 MONTHS? NO . ANY NEW EXTREMITY NUMBNESS OR WEAKNESS? NO . CARDIOLOGY: DO YOU HAVE A PACEMAKER OR DEFIBRILLATOR? NO . RESPIRATORY: HAVE YOU BEEN SICK IN THE PAST WEEK? NO . FEVER NO . FLU LIKE SYMPTOMS? NO . COUGH NO . INTEGUMENTARY: DO YOU HAVE ANY RASHES OR OPEN SORES? NO . ALLERGIC/IMMUNO: ARE YOU ALLERGIC TO SHELLFISH OR IV DYE? NO . ANY NEW ALLERGIES? NO . PSYCHIATRIC: DO YOU HAVE THOUGHTS OF HURTING YOURSELF OR SOMEONE ELSE? NO . ARE YOU ABUSED, NEGLECTED, OR IN AN UNSAFE ENVIRONMENT? NO . ENDOCRINOLOGY: ARE YOU DIABETIC? NO . OTHER: DO YOU NEED ANY PRESCRIPTIONS? NO . IF YES, PLEASE LIST: ____ . ANY NEW PROBLEMS WITH YOUR MEDICATIONS? NO . WHEN DID YOU LAST EAT? 02/10/17 . WHEN DID YOU LAST DRINK? 02/11/17 0800 . WHAT DID YOU LAST DRINK? WATER . NAME OF PERSON DRIVING YOU HOME? KALEIGH . DO YOU HAVE ANY OTHER QUESTIONS OR CONCERNS NO, PT DENIES RECEIVING FLU VACCINE THIS SEASON . VITAL SIGNS WT 160 LBS, HT 69", BMI 23.63 INDEX, BP 124/78 MM HG, HR 63 /MIN, RR 16 /MIN, TEMP 98.3 F, OXYGEN SAT % 97%, NA INITIALS AW 1009. ASSESSMENTS SPONDYLOSIS OF LUMBAR REGION WITHOUT MYELOPATHY OR RADICULOPATHY - M47.816 (PRIMARY) SPONDYLOSIS OF LUMBOSACRAL REGION WITHOUT MYELOPATHY OR RADICULOPATHY - M47.817 PROCEDURES PN LUMBAR FACET BLOCK THERAPEUTIC PRE PROCEDURE DIAGNOSIS LUMBAR SPONDYLOSIS, LUMBOSACRAL SPONDYLOSIS POST PROCEDURE DIAGNOSIS LUMBAR SPONDYLOSIS, LUMBOSACRAL SPONDYLOSIS PROCEDURE BILATERAL L3-L4, BILATERAL L4-L5 AND BILATERAL L5-S1 LUMBAR FACET THERAPEUTIC BLOCK SURGEON DR. BRENNA CLEMENTS STAVE LOG RIPSAW OPERATOR NONE ANESTHESIA LOCAL PRE PROCEDURE NOTE THE PATIENT HAS A HISTORY OF CHRONIC LOW BACK PAIN. I EVALUATE THE PATIENT AND REVIEWED THE CHART. I WENT OVER THE RISKS, ALTERNATIVES, AND BENEFITS ASSOCIATED WITH THIS PROCEDURE. THE PATIENT WOULD LIKE TO PROCEED AND GIVE CONSENT TO PERFORMED THE PROCEDURE. THE PATIENT DENIES UNEXPLAINABLE WEIGHT LOSS, FEVER, CHILLS, OR NEW CHANGES IN URINARY OR BOWEL CONTROL DESCRIPTION OF PROCEDURE THE PATIENT WAS BROUGHT TO THE PROCEDURE ROOM AND PLACED IN THE PRONE POSITION. THE LUMBOSACRAL AREA WAS CLEANED WITH CHLORAPREP SOLUTION AND DRAPED ASEPTICALLY. THE PROCEDURE WAS DONE UNDER STERILE CONDITIONS. I CHECKED LATERALITY AND THE LEVEL WHERE THE PROCEDURE WAS GOING TO BE PERFORMED WITH THE PATIENT AND THE SUPPORTING STAFF AT THE MOMENT OF THE TIME OUT IN THE PROCEDURE ROOM. UNDER FLUOROSCOPIC GUIDANCE, THE TARGET POINT WAS SELECTED AT THE RIGHT AND LEFT L3-L4, RIGHT AND LEFT L4-L5 AND RIGHT AND LEFT L5-S1 FACET JOINT. TARGET POINT WAS SELECTED AFTER LATERAL ROTATION AND TILT OF THE MAGNIFIER OF THE C-ARM. LIDOCAINE 0.5% WAS USED TO NUMB THE SKIN AND THE SUBCUTANEOUS TISSUE BELOW IT. SPINAL NEEDLES, 22-GAUGE, WERE ADVANCED UNDER FLUOROSCOPIC GUIDANCE AND FOLLOWING PATIENT FEEDBACK UNTIL THE TARGETS WERE TOUCHED. THE POSITION OF THE NEEDLES WAS VERIFIED WITH AP AND LATERAL VIEWS. AFTER PROPER POSITION OF THE NEEDLES WAS ACHIEVED, ISOVUE-M DYE 30% 0.1 ML WAS INJECTED SHOWING ADEQUATE SPREAD OF THE DYE. THEN A SOLUTION OF 1.9 ML OF BUPIVACAINE 0.125% OF KENALOG [] MG WAS INJECTED AT EACH SITE. THERE WAS NO EVIDENCE OF BLOOD, PARESTHESIA OR CEREBROSPINAL FLUID DURING THE PROCEDURE. THE PATIENT WAS SENT TO THE RECOVERY ROOM. THE PATIENT WAS MOVING THE EXTREMITIES AND DOING WELL. THERE WAS NO COMPLICATION DURING THE PROCEDURE. FLUOROSCOPY TIME WAS 1 MINUTE 7 SECONDS POST PROCEDURE NOTE THE PATIENT WILL BE SEEN IN A FOLLOW UP IN THE NEXT FEW WEEKS. INSTRUCTIONS WERE GIVEN, QUESTIONS WERE ANSWERED, AND THE PATIENT EXPRESSED UNDERSTANDING AND AGREES WITH THE PLAN. I, MANDA BRYAN, DOCUMENTED THE ABOVE INFORMATION ACTING A SCRIBE FOR DR. CLEMENTS. I HAVE REVIEWED THE ABOVE DOCUMENT, WRITTEN BY MANDA BRYAN SCRIBE AND I VERIFY THAT IT IS ACCURATE DIAGNOSTIC IMAGING [facility] FACET BLOCK (PAIN)[id number] PROCEDURE CODES 24580 INJ PARAVERT F JNT L/S 1 LEV, MODIFIERS: 50 [id number] INJ PARAVERT F JNT L/S 2 LEV, MODIFIERS: 50 [id number] INJ PARAVERT F JNT L/S 3 LEV, MODIFIERS: 50 [id number] RADXPS IN END [id number] PXD DISPOSITION & COMMUNICATION FOLLOW UP 3 WEEKS ELECTRONICALLY SIGNED BY BRENNA CLEMENTS MD ON 02/16/2017 AT 02:26 PM EST DISCLAIMER : THIS IS A VISIT SUMMARY EXTRACTED FROM THE [employer] CHART. IT IS NOT A COPY OF THE [employer] PROGRESS NOTE. MTDD
== END ==
LOC: M PAIN 10:15
PROVIDERS: ATTEND Anesthesiology
DX: M47.816 Spondylosis without myelopathy or radiculopathy, lumbar region (principal); M47.817 Spondylosis without myelopathy or radiculopathy, lumbosacral region; F17.210 Nicotine dependence, cigarettes, uncomplicated; Z79.899 Other long term (current) drug therapy
CPT/HCPCS: 64493; 64494; 64495; J3301; Q9967

== ENCOUNTER → 2017-03-04 | Outpatient (CLI) | payer MEDICARE, BC, OTHER ==
[~2017-03-04] MED LIST changes: -BUPIVACAINE HCL 0.25% 30 ML VIAL As Ordered ONE; -ISOVUE-M 300 61% 15ML VIAL (Q9967) As Ordered ONE; -LIDOCAINE 1% SDV INJ 30 ML VIAL As Ordered ONE; -TRIAMCINOLONE ACETONIDE SUSP 40 MG/ML VIAL (J3301) As Ordered ONE; -diazePAM 5 MG TAB As Ordered ONE; -oxyCODONE 5MG TAB As Ordered ONE
[2017-03-04 10:18] LABS: MEAN CORPUSCULAR HEMOGLOBIN 28.6 pg (27.0-33.0); MEAN CORPUSCULAR HGB CONC 32.1 g/dl (32.0-36.5); MEAN CORPUSCULAR VOLUME 89.1 fl (80.0-96.0); PLATELET COUNT, AUTOMATED 281 10^3/uL (150-450); RED CELL DISTRIBUTION WIDTH 14.3 % (11.5-14.5); WHITE BLOOD COUNT 7.3 10^3/uL (4.0-10.0)
[2017-03-04 10:56] LABS: ALBUMIN 4.2 GM/DL (3.2-5.2); ALBUMIN/GLOBULIN RATIO 1.31 (1.00-1.93); ALKALINE PHOSPHATASE 47 U/L (45-117); ALT/SGPT 23 U/L (12-78); ANION GAP 6 MEQ/L (8-16); AST/SGOT 16 U/L (7-37); BILIRUBIN,TOTAL 0.4 MG/DL (0.2-1.0); BLOOD UREA NITROGEN 19 MG/DL (7-18); CALCIUM LEVEL 8.8 MG/DL (8.5-10.1); CARBON DIOXIDE LEVEL 30 MEQ/L (21-32); CHLORIDE LEVEL 106 MEQ/L (98-107); CHOLESTEROL LEVEL 187 MG/DL (<200); CREATININE FOR GFR 0.83 MG/DL (0.70-1.30); GLOMERULAR FILTRATION RATE > 60.0 (>56); GLUCOSE, FASTING 101 MG/DL (70-105); SODIUM LEVEL 142 MEQ/L (136-145); TOTAL PROTEIN 7.4 GM/DL (6.4-8.2); TRIGLYCERIDES LEVEL 46 MG/DL (<150)
--- NOTE | 2017-03-04 11:09 | REP ---
PA and lateral chest: Comparison is 12/03/2015. The lung groves are clear. The cardiac size is normal The celso, mediastinum, and bony thorax are unremarkable. Impression: Negative PA and lateral chest. There is a cervical spine stabilization plate, unchanged. Signed by Isaias Santos MD 03/04/2017 11:01 A
--- NOTE | 2017-03-04 19:55 | ECGEPIP ---
Stationary ECG Study [facility] Test Date: 2017-03-04 Pat Name: AKIRA BRIZUELA Department: Room: - Gender: M Direct Marketing Analyst: GUERO : 1960 Requested By: Fern Potts Order Number: [id number] Reading MD: Kory Wiggins Measurements Intervals [place] Rate: 63 P: 76 OK: 129 QRS: 70 QRSD: 101 T: 44 QT: 406 QTc: 419 Interpretive Statements SINUS RHYTHM POSSIBLE LEFT VENTRICULAR HYPERTROPHY Early repolarization. No significant change compared with 07/04/2016. Electronically Signed On 03-04-2017 19:54:57 EST by Kory Wiggins
== END ==
LOC: M LAB 09:29
PROVIDERS: ATTEND Family Medicine
DX: I20.9 Angina pectoris, unspecified (principal); R94.31 Abnormal electrocardiogram [ECG] [EKG]

== ENCOUNTER → 2017-08-06 | Outpatient (CLI) | payer MEDICARE, BC, OTHER | LOC: M RAD 12:08 | DX: J44.9 Chronic obstructive pulmonary disease, unspecified (principal) | CPT/HCPCS: 71046 ==

== ENCOUNTER → 2018-02-16 | Outpatient (CLI) | payer MEDICARE, BC, OTHER ==
[2018-02-16 09:47] LABS: HEMATOCRIT 42.4 % (42.0-52.0); MEAN CORPUSCULAR HEMOGLOBIN 28.3 pg (27.0-33.0); MEAN CORPUSCULAR VOLUME 85.8 fl (80.0-96.0); PLATELET COUNT, AUTOMATED 299 10^3/uL (150-450); RED BLOOD COUNT 4.94 10^6/uL (4.30-6.10); RED CELL DISTRIBUTION WIDTH 13.9 % (11.5-14.5); WHITE BLOOD COUNT 8.6 10^3/uL (4.0-10.0)
[2018-02-16 10:25] LABS: ALBUMIN 4.6 GM/DL (3.2-5.2); ALBUMIN/GLOBULIN RATIO 1.48 (1.00-1.93); ALKALINE PHOSPHATASE 49 U/L (45-117); ALT/SGPT 22 U/L (12-78); ANION GAP 5 MEQ/L (8-16); AST/SGOT 11 U/L (7-37); BILIRUBIN,TOTAL 0.6 MG/DL (0.2-1.0); BLOOD UREA NITROGEN 15 MG/DL (7-18); CALCIUM LEVEL 9.7 MG/DL (8.5-10.1); CARBON DIOXIDE LEVEL 30 MEQ/L (21-32); CHLORIDE LEVEL 105 MEQ/L (98-107); CHOLESTEROL LEVEL 204 MG/DL (<200); CHOLESTEROL RISK RATIO 2.833 (<5); CREATININE FOR GFR 0.76 MG/DL (0.70-1.30); GLOMERULAR FILTRATION RATE > 60.0 (>56); GLUCOSE, FASTING 102 MG/DL (70-100); HDL CHOLESTEROL 72 MG/DL (>40); LDL CHOLESTEROL 118 MG/DL (<100); NON-HDL-C 132 MG/DL; POTASSIUM SERUM 4.8 MEQ/L (3.5-5.1); PROSTATIC SPECIFIC AG MONITOR 1.1 NG/ML (< 4.0); SODIUM LEVEL 140 MEQ/L (136-145); TESTOSTERONE 651 NG/DL (241-827); THYROID STIMULATING HORMONE 0.919 uIU/ML (0.358-3.740); TOTAL 25(OH) VITAMIN D 42.2 NG/ML (30.0-100.0); TOTAL PROTEIN 7.7 GM/DL (6.4-8.2); TRIGLYCERIDES LEVEL 68 MG/DL (<150)
[2018-02-16 11:09] LABS: ESTIMATED AVERAGE GLUCOSE 114 MG/DL (60-110); HEMOGLOBIN A1c 5.6 %
== END ==
LOC: M LAB 08:50
DX: E03.9 Hypothyroidism, unspecified (principal); I10 Essential (primary) hypertension; R53.81 Other malaise; Z79.899 Other long term (current) drug therapy
CPT/HCPCS: 84403

== ENCOUNTER → 2019-02-02 | Outpatient (CLI) | payer MEDICARE, BC, OTHER ==
[2019-02-02 06:57] LABS: HEMOGLOBIN 12.3 g/dl (13.5-17.5); MEAN CORPUSCULAR HEMOGLOBIN 28.9 pg (27.0-33.0); MEAN CORPUSCULAR HGB CONC 31.5 g/dl (32.0-36.5); MEAN CORPUSCULAR VOLUME 91.5 fl (80.0-96.0); PLATELET COUNT, AUTOMATED 258 10^3/uL (150-450); RED BLOOD COUNT 4.26 10^6/uL (4.30-6.10); WHITE BLOOD COUNT 6.3 10^3/uL (4.0-10.0)
[2019-02-02 07:34] LABS: ALBUMIN 3.9 GM/DL (3.2-5.2); ALT/SGPT 29 U/L (12-78); BILIRUBIN,TOTAL 0.5 MG/DL (0.2-1.0); BLOOD UREA NITROGEN 20 MG/DL (7-18); CARBON DIOXIDE LEVEL 30 MEQ/L (21-32); CHLORIDE LEVEL 109 MEQ/L (98-107); CHOLESTEROL LEVEL 162 MG/DL (<200); CHOLESTEROL RISK RATIO 2.189 (<5); CREATININE FOR GFR 0.78 MG/DL (0.70-1.30); GLOMERULAR FILTRATION RATE > 60.0 (>56); GLUCOSE, FASTING 95 MG/DL (70-100); HDL CHOLESTEROL 74 MG/DL (>40); LDL CHOLESTEROL 78 MG/DL (<100); NON-HDL-C 88 MG/DL; SODIUM LEVEL 141 MEQ/L (136-145); THYROID STIMULATING HORMONE 0.774 uIU/ML (0.358-3.740); TOTAL PROTEIN 7.1 GM/DL (6.4-8.2); TRIGLYCERIDES LEVEL 48 MG/DL (<150)
--- NOTE | 2019-02-02 08:30 | REP ---
Chest x-ray: Two views. History: Hypertension. COPD. Comparison study: August 06, 2017. Findings: The patient is status post lower cervical discectomy and fusion plating. Lungs are well inflated and clear. The pleural angles are sharp. Heart size is normal. Pulmonary vasculature is not increased. No other significant bony abnormality is seen. Impression: No active disease. Status post cervical fusion surgery. Electronically Signed by Johnny Hutchins MD 02/02/2019 08:22 A
[2019-02-02 09:24] LABS: TESTOSTERONE 606 NG/DL (241-827)
== END ==
LOC: M LAB 06:09
PROVIDERS: ATTEND Family Medicine
DX: I10 Essential (primary) hypertension (principal); J44.9 Chronic obstructive pulmonary disease, unspecified

== ENCOUNTER → 2019-04-28 | Outpatient (CLI) | payer MEDICARE, BC, OTHER ==
--- NOTE | 2019-04-28 12:45 | REP ---
Lumbar spine five views: Vertebral body heights are normal. There is degenerative disc disease at every lumbar level, mild from C1-C4 and advanced at C4-5. There is grade 1 retrolisthesis of L5 on S1. The pedicles and facets are unremarkable. Sacroiliac articulations are unremarkable. Impression: Degenerative disc disease as described. Grade 1 retrolisthesis of L5. Electronically Signed by Isaias Santos MD 04/28/2019 12:36 P
== END ==
LOC: M RAD 11:57
PROVIDERS: ATTEND Family Medicine
DX: R53.83 Other fatigue (principal); M54.30 Sciatica, unspecified side

== ENCOUNTER → 2019-06-06 | Outpatient (CLI) | payer MEDICARE, BC, OTHER ==
[2019-06-06 07:05] LABS: BLOOD UREA NITROGEN 16 MG/DL (7-18); CREATININE FOR GFR 0.72 MG/DL (0.70-1.30); GLOMERULAR FILTRATION RATE > 60.0 (>49)
== END ==
LOC: M LAB 06:15
PROVIDERS: ATTEND Pain Medicine Interventional Pain Medicine
DX: M96.1 Postlaminectomy syndrome, not elsewhere classified (principal)

== ENCOUNTER → 2019-11-17 | Outpatient (CLI) | payer MEDICARE, BC, OTHER ==
[~2019-11-17] MED LIST changes: +ISOVUE-370 76% 100ML VIAL As Ordered ONE
--- NOTE | 2019-11-24 17:12 | REP ---
CONTRAST ENHANCED CHEST CT USING ANGIOGRAPHIC TECHNIQUE CLINICAL: Chest pain. Evaluate for pulmonary embolus. TECHNIQUE: Axial contrast enhanced images from the thoracic inlet to the upper abdomen using 75 mL of Isovue-370 intravenous contrast material with pulmonary embolus technique. Multiplanar reformations obtained. FINDINGS: Satisfactory enhancement of the pulmonary vasculature achieved and no filling defects are identified to suggest pulmonary embolus. Thoracic aorta is grossly normal and without obvious aneurysm or dissection. Heart and pericardium are normal. The bilateral lung groves are well-aerated and clear. No consolidation, significant nodule, or mass lesion. No pleural effusion. No pneumothorax. Tracheobronchial tree is patent. No adenopathy. Surrounding musculoskeletal structures are intact. Limited upper abdomen demonstrates normal bilateral adrenal glands. IMPRESSION: 1. No evidence for pulmonary embolus. 2. No acute mediastinal or pleural parenchymal process. MTDD
== END ==
LOC: M RAD 06:59
PROVIDERS: ATTEND Internal Medicine Pulmonary Disease
DX: R07.9 Chest pain, unspecified (principal)
CPT/HCPCS: 71275; Q9967

== ENCOUNTER → 2020-09-11 | Outpatient (CLI) | payer MEDICARE, BC, OTHER ==
[~2020-09-11] MED LIST changes: -ISOVUE-370 76% 100ML VIAL As Ordered ONE
[2020-09-11 09:12] LABS: BASO % 0.7 % (0.0-1.0); EOS # 0.1 10^3/uL (0.0-0.5); EOS % 2.5 % (0.0-3.0); HEMATOCRIT 39.3 % (42.0-52.0); HEMOGLOBIN 12.6 g/dl (13.5-17.5); LYMPH # 1.6 10^3/uL (1.5-5.0); LYMPH % 29.3 % (24.0-44.0); MEAN CORPUSCULAR HEMOGLOBIN 28.1 pg (27.0-33.0); MEAN CORPUSCULAR HGB CONC 32.1 g/dl (32.0-36.5); MEAN CORPUSCULAR VOLUME 87.7 fl (80.0-96.0); MONO # 0.5 10^3/uL (0.0-0.8); MONO % 9.1 % (2.0-8.0); NEUTROPHILS # 3.2 10^3/uL (1.5-8.5); NEUTROPHILS % 58.2 % (36.0-66.0); PLATELET COUNT, AUTOMATED 333 10^3/uL (150-450); RED BLOOD COUNT 4.48 10^6/uL (4.30-6.10); WHITE BLOOD COUNT 5.5 10^3/uL (4.0-10.0)
[2020-09-11 09:35] LABS: RHEUMATOID FACTOR QUANT < 10.0 IU/ML (<15.0); URIC ACID 4.5 MG/DL (3.5-7.2)
[2020-09-11 09:46] LABS: ERYTHROCYTE SEDIMENTATION RATE 5 mm/hr (0-20)
[2020-09-12 20:13] LABS: ANTINUCLEAR ANTIBODIES DIRECT Negative (Negative); Lyme Disease IgG/IgM Antibodie <0.91 ISR (0.00-0.90); Lyme Disease IgM Ab Quantitati <0.80 index (0.00-0.79)
== END ==
LOC: M LAB 08:28
PROVIDERS: ATTEND Physician Assistant Surgical
DX: M25.562 Pain in left knee (principal)

== ENCOUNTER → 2020-10-26 | Outpatient (CLI) | payer MEDICARE, BC, OTHER ==
--- NOTE | 2020-10-26 09:49 | ECGEPIP ---
[facility] Test Date: 2020-10-26 Pat Name: AKIRA BRIZUELA Department: Room: - Gender: Male Medical Coding Technician: CK : 1960 Requested By: Shar Saavedra Order Number: [id number] Reading MD: Khalida Cuellar Measurements Intervals [place] Rate: 70 P: 75 SD: 126 QRS: 70 QRSD: 102 T: 47 QT: 422 QTc: 455 Interpretive Statements Normal sinus rhythM LVH INFERIOR ST ABN MORE PROMINENT T WAVE PEAKING NOW ABSENT EARLY REPOLAR CHANGES/SEPTAL AGAIN SEEN C/W 03/04/17 Electronically Signed on 10-26-2020 9:49:27 EDT by Khalida Cuellar
== END ==
LOC: M EKG 07:28
PROVIDERS: ATTEND Orthopaedic Surgery
DX: Z01.810 Encounter for preprocedural cardiovascular examination (principal); I42.2 Other hypertrophic cardiomyopathy

== ENCOUNTER → 2020-11-09 | Outpatient (CLI) | payer MEDICARE, BC, OTHER ==
--- NOTE | 2020-11-09 12:54 | REP ---
INDICATION: SWELLING, PAIN LT LEG COMPARISON: None. TECHNIQUE: Real time compression and duplex Doppler interrogation of the left lower extremity deep venous system is performed, including the right common femoral vein.Compression of the left peroneal and posterior tibial veins is performed. FINDINGS: The left common femoral, superficial femoral and popliteal veins are fully compressible with transducer pressure and demonstrate normal spontaneous and phasic flow, without evidence of deep venous thrombosis.The right common femoral vein demonstrates no thrombus.The visualized left peroneal and posterior tibial veins demonstrate no thrombus. IMPRESSION: No evidence of deep venous thrombosis of the left lower extremity femoral popliteal venous system.No thrombus in the visualized left peroneal and posterior tibial veins. <Electronically signed by Isaias Noel > 11/09/20 0997
== END ==
LOC: M RAD 11:54
PROVIDERS: ATTEND Orthopaedic Surgery
DX: M79.662 Pain in left lower leg (principal)

== ENCOUNTER → 2021-01-02 | Outpatient (CLI) | payer MEDICARE, BC, OTHER ==
[~2021-01-02] MED LIST changes: +GASTROGRAFIN SOLUTION 30ML (Q9963) As Ordered ONE; +ISOVUE-370 76% 100ML VIAL As Ordered ONE
--- NOTE | 2021-01-02 09:20 | REP ---
INDICATION: ABD PAIN, WEIGHT LOSS. COMPARISON: 07/04/2016 TECHNIQUE: Standard helical technique after the intravenous administration of 100 cc Isovue 370. Oral bowel preparatory contrast was also administered prior to the exam. FINDINGS: Lung bases are clear. Liver, gallbladder, spleen, pancreas, adrenal glands, and kidneys are again seen to be within normal limits. The abdominal aorta and para-aortic regions are again seen to be within normal limits. The bowel loops and the mesenteries are within normal limits. There is no free fluid or free air. There is no evidence of a mass or adenopathy. Bone window technique throughout the exam shows no significant change in the appearance of the osseous structures. IMPRESSION: CT findings are within normal limits. <Electronically signed by Heath Rao > 01/02/21 0940
== END ==
LOC: M RAD 12-31 08:22
PROVIDERS: ATTEND Internal Medicine Gastroenterology
DX: R10.9 Unspecified abdominal pain (principal); R63.4 Abnormal weight loss
CPT/HCPCS: 74177; Q9963; Q9967

== ENCOUNTER → 2021-02-09 | Outpatient (CLI) | payer MEDICARE, BC, OTHER ==
[~2021-02-09] MED LIST changes: -GASTROGRAFIN SOLUTION 30ML (Q9963) As Ordered ONE; -ISOVUE-370 76% 100ML VIAL As Ordered ONE
== END ==
LOC: M LABSMTC 09:18
PROVIDERS: ATTEND Anesthesiology
DX: Z01.812 Encounter for preprocedural laboratory examination (principal); Z20.822 Contact with and (suspected) exposure to COVID-19

== ENCOUNTER → 2021-03-30 | Outpatient (CLI) | payer MEDICARE, BC, OTHER ==
[2021-03-30 08:53] LABS: HEMATOCRIT 37.4 % (42.0-52.0); HEMOGLOBIN 11.8 g/dl (13.5-17.5); MEAN CORPUSCULAR HEMOGLOBIN 27.3 pg (27.0-33.0); MEAN CORPUSCULAR HGB CONC 31.6 g/dl (32.0-36.5); MEAN CORPUSCULAR VOLUME 86.6 fl (80.0-96.0); PLATELET COUNT, AUTOMATED 404 10^3/uL (150-450); RED BLOOD COUNT 4.32 10^6/uL (4.30-6.10); WHITE BLOOD COUNT 12.7 10^3/uL (4.0-10.0)
[2021-03-30 08:58] LABS: APPEARANCE, URINE TURBID (CLEAR); BACTERIA, URINE AUTO 2+ (NEGATIVE); BILIRUBIN, URINE AUTO NEGATIVE (NEGATIVE); BLOOD, URINE BLOOD 2+ (NEGATIVE); COLOR, URINE YELLOW (YELLOW); GLUCOSE, URINE (UA) AUTO NEGATIVE (NEGATIVE); KETONE, URINE AUTO 1+ mg/dL (NEGATIVE); LEUKOCYTE ESTERASE, URINE AUTO 3+ (NEGATIVE); MUCUS, URINE SMALL (NEGATIVE); NITRITE, URINE AUTO POSITIVE (NEGATIVE); PROTEIN, URINE AUTO 2+ mg/dL (NEGATIVE); RBC, URINE AUTO 64 /HPF (0-3); SPECIFIC GRAVITY URINE AUTO 1.017 (1.002-1.035); SQUAMOUS EPITHELIAL CELL UR AU 1 /HPF (0-6); UROBILINOGEN, URINE AUTO 0.2 mg/dL (0.0-2.0); WBC, URINE AUTO TNTC /HPF (0-3)
[2021-03-30 09:21] LABS: ALBUMIN 3.7 GM/DL (3.2-5.2); ALT/SGPT 23 U/L (12-78); BILIRUBIN,TOTAL 0.7 MG/DL (0.2-1.0); BLOOD UREA NITROGEN 22 MG/DL (7-18); CALCIUM LEVEL 9.1 MG/DL (8.8-10.2); CARBON DIOXIDE LEVEL 27 MEQ/L (21-32); CHLORIDE LEVEL 104 MEQ/L (98-107); CHOLESTEROL LEVEL 168 MG/DL (<200); CHOLESTEROL RISK RATIO 2.666 (<5); CREATININE FOR GFR 0.82 MG/DL (0.70-1.30); GLOMERULAR FILTRATION RATE > 60.0 (>49); GLUCOSE, FASTING 113 MG/DL (70-100); HDL CHOLESTEROL 63 MG/DL (>40); LDL CHOLESTEROL 98 MG/DL (<100); NON-HDL-C 105 MG/DL; POTASSIUM SERUM 4.8 MEQ/L (3.5-5.1); PROSTATIC SPECIFIC AG MONITOR 9.62 NG/ML (< 4.00); SODIUM LEVEL 138 MEQ/L (136-145); THYROID STIMULATING HORMONE 0.481 uIU/ML (0.358-3.740); TOTAL PROTEIN 7.6 GM/DL (6.4-8.2); TRIGLYCERIDES LEVEL 34 MG/DL (<150)
[2021-03-30 10:28] LABS: HEMOGLOBIN A1c 5.3 %
[2021-04-01 10:51] LABS: TESTOSTERONE 276 NG/DL (241-827)
== END ==
LOC: M LAB 08:11
PROVIDERS: ATTEND Family Medicine
DX: D64.9 Anemia, unspecified (principal); R53.83 Other fatigue; E03.9 Hypothyroidism, unspecified; Z79.899 Other long term (current) drug therapy

== ENCOUNTER → 2021-04-20 | Outpatient (CLI) | payer MEDICARE, BC, OTHER ==
[~2021-04-20] MED LIST changes: +FLOM0.4C39 PO; +TUSSINEX PO
== END ==
LOC: M LAB 08:08
PROVIDERS: ATTEND Physician Assistant
DX: R97.20 Elevated prostate specific antigen [PSA] (principal)

== ENCOUNTER → 2021-05-01 | Outpatient (CLI) | payer MEDICARE, BC, OTHER | LOC: M LABSMTC 09:22 | PROVIDERS: ATTEND Anesthesiology | DX: Z01.818 Encounter for other preprocedural examination (principal); Z11.52 Encounter for screening for COVID-19 ==

== ENCOUNTER 2021-05-06 06:57 | Day surgery (SDC) | payer MEDICARE, BC, OTHER ==
[~2021-05-06] VITALS: Ht 175.3 cm; Wt 68.5 kg
[~2021-05-06 06:57] MED LIST changes: +NS 1,000 ML IV ONE
[2021-05-06] MEDS ORDERED: propofoL 500 MG/50 ML VIAL As Ordered ONE (07:37)
[2021-05-06] MEDS ORDERED: LIDOCAINE 2% 100MG/5ML SDV (FOR ANES.) As Ordered ONE (07:37)
[2021-05-06] MEDS ORDERED: fentaNYL 100 MCG/2 ML INJECTION As Ordered ONE (08:15)
[2021-05-06 09:38] VITALS: BP 132/83
== END 2021-05-06 09:50 | disposition home or self-care (01) ==
LOC: M OPP 06:57
PROVIDERS: ATTEND Internal Medicine Gastroenterology
DX: Z12.11 Encounter for screening for malignant neoplasm of colon (principal); K57.30 Diverticulosis of large intestine without perforation or abscess without bleeding; K64.8 Other hemorrhoids; R63.4 Abnormal weight loss; R10.84 Generalized abdominal pain
CPT/HCPCS: 43239; 88305; G0121; J3010

== ENCOUNTER 2021-09-09 17:40 | Emergency (ER) | payer MEDICARE, BC, OTHER ==
[~2021-09-09] VITALS: Ht 175.3 cm; Wt 68.2 kg
[2021-09-09 17:40] VITALS: BP 158/78
[~2021-09-09 17:40] MED LIST changes: -NS 1,000 ML IV ONE
== END 2021-09-09 19:05 | disposition left against medical advice (07) ==
LOC: M ED 17:40
DX: Z53.29 Procedure and treatment not carried out because of patient's decision for other reasons (principal)

== ENCOUNTER → 2021-09-10 | Outpatient (CLI) | payer MEDICARE, BC, OTHER | LOC: M RAD 07:38 | PROVIDERS: ATTEND Physician Assistant | DX: M50.30 Other cervical disc degeneration, unspecified cervical region (principal) ==

== ENCOUNTER → 2021-12-19 | Outpatient (CLI) | payer MEDICARE, BC, OTHER ==
[2021-12-19 08:07] LABS: HEMATOCRIT 37.7 % (42.0-52.0); MEAN CORPUSCULAR HEMOGLOBIN 28.3 pg (27.0-33.0); MEAN CORPUSCULAR HGB CONC 31.8 g/dl (32.0-36.5); MEAN CORPUSCULAR VOLUME 88.9 fl (80.0-96.0); PLATELET COUNT, AUTOMATED 317 10^3/uL (150-450); RED BLOOD COUNT 4.24 10^6/uL (4.30-6.10); WHITE BLOOD COUNT 9.1 10^3/uL (4.0-10.0)
[2021-12-19 08:17] LABS: INR 0.83; PROTHROMBIN TIME 11.8 SECONDS (12.7-14.5)
[2021-12-19 08:54] LABS: ALBUMIN 3.7 GM/DL (3.2-5.2); ALT/SGPT 19 U/L (12-78); BILIRUBIN,TOTAL 0.4 MG/DL (0.2-1.0); BLOOD UREA NITROGEN 16 MG/DL (7-18); CALCIUM LEVEL 8.9 MG/DL (8.8-10.2); CARBON DIOXIDE LEVEL 29 MEQ/L (21-32); CHLORIDE LEVEL 105 MEQ/L (98-107); CHOLESTEROL LEVEL 179 MG/DL (<200); CHOLESTEROL RISK RATIO 2.237 (<5); CREATININE FOR GFR 0.75 MG/DL (0.70-1.30); GLOMERULAR FILTRATION RATE > 60.0 (>49); GLUCOSE, FASTING 97 MG/DL (70-100); HDL CHOLESTEROL 80 MG/DL (>40); LDL CHOLESTEROL 91 MG/DL (<100); NON-HDL-C 99 MG/DL; SODIUM LEVEL 135 MEQ/L (136-145); THYROID STIMULATING HORMONE 0.926 uIU/ML (0.358-3.740); TOTAL PROTEIN 7.2 GM/DL (6.4-8.2); TRIGLYCERIDES LEVEL 40 MG/DL (<150)
== END ==
LOC: M RAD 06:39
PROVIDERS: ATTEND Family Medicine
DX: I10 Essential (primary) hypertension (principal); Z79.899 Other long term (current) drug therapy

== ENCOUNTER → 2021-12-26 | Outpatient (CLI) | payer MEDICARE, BC, OTHER | LOC: M LABSMTC 09:40 | PROVIDERS: ATTEND Orthopaedic Surgery Orthopaedic Surgery of the Spine | DX: Z20.822 Contact with and (suspected) exposure to COVID-19 (principal) ==

== ENCOUNTER → 2022-02-11 | Outpatient (REF) | payer MEDICARE, BC, OTHER ==
[2022-02-11 09:55] LABS: BASO # 0.1 10^3/uL (0.0-0.2); BASO % 0.7 % (0.0-1.0); EOS # 0.1 10^3/uL (0.0-0.5); EOS % 1.3 % (0.0-3.0); HEMATOCRIT 32.7 % (42.0-52.0); HEMOGLOBIN 10.2 g/dl (13.5-17.5); LYMPH # 2.1 10^3/uL (1.5-5.0); LYMPH % 28.9 % (24.0-44.0); MEAN CORPUSCULAR HEMOGLOBIN 26.9 pg (27.0-33.0); MEAN CORPUSCULAR HGB CONC 31.2 g/dl (32.0-36.5); MEAN CORPUSCULAR VOLUME 86.3 fl (80.0-96.0); MONO # 0.6 10^3/uL (0.0-0.8); MONO % 7.9 % (2.0-8.0); NEUTROPHILS # 4.4 10^3/uL (1.5-8.5); NEUTROPHILS % 60.9 % (36.0-66.0); PLATELET COUNT, AUTOMATED 447 10^3/uL (150-450); RED BLOOD COUNT 3.79 10^6/uL (4.30-6.10); WHITE BLOOD COUNT 7.2 10^3/uL (4.0-10.0)
[2022-02-11 10:54] LABS: ERYTHROCYTE SEDIMENTATION RATE 27 mm/hr (0-20)
== END ==
LOC: M WUC 08:40
PROVIDERS: ATTEND Internal Medicine Infectious Disease
DX: T81.31XA Disruption of external operation (surgical) wound, not elsewhere classified, initial encounter (principal)

== ENCOUNTER → 2022-05-29 | Outpatient (CLI) | payer MEDICARE, BC, OTHER ==
[2022-05-29 10:13] LABS: BASO # 0.1 10^3/uL (0.0-0.2); BASO % 0.7 % (0.0-1.0); EOS # 0.2 10^3/uL (0.0-0.5); HEMATOCRIT 41.7 % (42.0-52.0); HEMOGLOBIN 13.2 g/dl (13.5-17.5); LYMPH # 1.9 10^3/uL (1.5-5.0); LYMPH % 26.5 % (24.0-44.0); MEAN CORPUSCULAR HEMOGLOBIN 27.3 pg (27.0-33.0); MEAN CORPUSCULAR HGB CONC 31.7 g/dl (32.0-36.5); MEAN CORPUSCULAR VOLUME 86.3 fl (80.0-96.0); MONO # 0.6 10^3/uL (0.0-0.8); MONO % 8.2 % (2.0-8.0); NEUTROPHILS # 4.3 10^3/uL (1.5-8.5); NEUTROPHILS % 61.2 % (36.0-66.0); PLATELET COUNT, AUTOMATED 313 10^3/uL (150-450); RED BLOOD COUNT 4.83 10^6/uL (4.30-6.10)
[2022-05-29 10:14] LABS: APPEARANCE, URINE HAZY (CLEAR); BACTERIA, URINE AUTO 1+ (NEGATIVE); BILIRUBIN, URINE AUTO NEGATIVE (NEGATIVE); BLOOD, URINE BLOOD NEGATIVE (NEGATIVE); COLOR, URINE YELLOW (YELLOW); GLUCOSE, URINE (UA) AUTO NEGATIVE (NEGATIVE); KETONE, URINE AUTO NEGATIVE (NEGATIVE); LEUKOCYTE ESTERASE, URINE AUTO TRACE (NEGATIVE); MUCUS, URINE SMALL (NEGATIVE); NITRITE, URINE AUTO NEGATIVE (NEGATIVE); PROTEIN, URINE AUTO NEGATIVE (NEGATIVE); RBC, URINE AUTO 0 /HPF (0-3); SPECIFIC GRAVITY URINE AUTO 1.017 (1.002-1.035); SQUAMOUS EPITHELIAL CELL UR AU 0 /HPF (0-6); UROBILINOGEN, URINE AUTO 0.2 mg/dL (0.0-2.0); WBC, URINE AUTO 7 /HPF (0-3)
[2022-05-29 10:37] LABS: TOTAL IRON BINDING CAPACITY 311 UG/DL (250-425)
[2022-05-29 10:38] LABS: ALBUMIN 4.1 G/DL (3.2-5.2); ALKALINE PHOSPHATASE 60 U/L (46-116); ALT/SGPT 12 U/L (7.0-40); AST/SGOT 14 U/L (<34); BILIRUBIN,TOTAL 0.5 MG/DL (0.3-1.2); BLOOD UREA NITROGEN 21 MG/DL (9-23); CALCIUM LEVEL 9.3 MG/DL (8.3-10.6); CARBON DIOXIDE LEVEL 32 MMOL/L (20-31); CHLORIDE LEVEL 102 MMOL/L (98-107); CHOLESTEROL LEVEL 189 MG/DL (<200); CHOLESTEROL RISK RATIO 2.42 (<5); CREATININE FOR GFR 0.75 MG/DL (0.70-1.30); GLOMERULAR FILTRATION RATE > 60.0 (>49); GLUCOSE, FASTING 94 MG/DL (74-106); HDL CHOLESTEROL 77.8 MG/DL (>40); IRON (FE) 121 UG/DL (65-175); LDL CHOLESTEROL 100.6 MG/DL (<100); NON-HDL-C 111.2 MG/DL; PERCENT SATURATION 38.9 % (19.7-50.0); POTASSIUM SERUM 4.8 MMOL/L (3.5-5.1); SODIUM LEVEL 139 MMOL/L (136-145); TOTAL PROTEIN 7.4 G/DL (5.7-8.2); TRIGLYCERIDES LEVEL 53 MG/DL (<150)
[2022-05-29 10:41] LABS: FERRITIN 87.2 NG/ML (10.5-307.3); THYROID STIMULATING HORMONE 1.211 uIU/ML (0.55-4.78)
[2022-05-29 10:42] LABS: TOTAL 25(OH) VITAMIN D 39.7 NG/ML (20.0-100.0)
== END ==
LOC: M WUC 08:12
PROVIDERS: ATTEND Physician Assistant
DX: D64.9 Anemia, unspecified (principal); I10 Essential (primary) hypertension; Z12.5 Encounter for screening for malignant neoplasm of prostate; Z79.899 Other long term (current) drug therapy
CPT/HCPCS: 36415; 80053; 80061; 81001; 82306; 82728; 83550; 84443; 85025; G0103

== ENCOUNTER → 2022-12-22 | Outpatient (CLI) | payer MEDICARE, BC, OTHER ==
[2022-12-22 07:23] LABS: BASO # 0.1 10^3/uL (0.0-0.2); BASO % 0.6 % (0.0-1.0); EOS # 0.6 10^3/uL (0.0-0.5); EOS % 6.8 % (0.0-3.0); HEMATOCRIT 33.6 % (42.0-52.0); LYMPH # 1.9 10^3/uL (1.5-5.0); LYMPH % 23.3 % (24.0-44.0); MEAN CORPUSCULAR HEMOGLOBIN 28.6 pg (27.0-33.0); MEAN CORPUSCULAR HGB CONC 32.7 g/dl (32.0-36.5); MEAN CORPUSCULAR VOLUME 87.3 fl (80.0-96.0); MONO # 0.8 10^3/uL (0.0-0.8); MONO % 9.4 % (2.0-8.0); NEUTROPHILS # 4.9 10^3/uL (1.5-8.5); NEUTROPHILS % 59.7 % (36.0-66.0); PLATELET COUNT, AUTOMATED 272 10^3/uL (150-450); RED BLOOD COUNT 3.85 10^6/uL (4.30-6.10); WHITE BLOOD COUNT 8.2 10^3/uL (4.0-10.0)
[2022-12-22 07:32] LABS: APPEARANCE, URINE CLEAR (CLEAR); BACTERIA, URINE AUTO NEGATIVE (NEGATIVE); BILIRUBIN, URINE AUTO NEGATIVE (NEGATIVE); BLOOD, URINE BLOOD NEGATIVE (NEGATIVE); COLOR, URINE YELLOW (YELLOW); GLUCOSE, URINE (UA) AUTO NEGATIVE (NEGATIVE); KETONE, URINE AUTO NEGATIVE (NEGATIVE); LEUKOCYTE ESTERASE, URINE AUTO NEGATIVE (NEGATIVE); MUCUS, URINE SMALL (NEGATIVE); NITRITE, URINE AUTO NEGATIVE (NEGATIVE); PROTEIN, URINE AUTO NEGATIVE (NEGATIVE); RBC, URINE AUTO 0 /HPF (0-3); SPECIFIC GRAVITY URINE AUTO 1.024 (1.002-1.035); SQUAMOUS EPITHELIAL CELL UR AU 1 /HPF (0-6); UROBILINOGEN, URINE AUTO 0.2 mg/dL (0.0-2.0); WBC, URINE AUTO 1 /HPF (0-3)
[2022-12-22 07:54] LABS: IRON (FE) 58 UG/DL (65-175); PERCENT SATURATION 22.1 % (19.7-50.0); TOTAL IRON BINDING CAPACITY 263 UG/DL (250-425)
[2022-12-22 07:55] LABS: ALBUMIN 3.5 G/DL (3.2-5.2); ALKALINE PHOSPHATASE 57 U/L (46-116); ALT/SGPT 19 U/L (7.0-40); AST/SGOT 17 U/L (<34); BILIRUBIN,TOTAL 0.5 MG/DL (0.3-1.2); BLOOD UREA NITROGEN 26 MG/DL (9-23); CALCIUM LEVEL 8.9 MG/DL (8.3-10.6); CARBON DIOXIDE LEVEL 30 MMOL/L (20-31); CHLORIDE LEVEL 109 MMOL/L (98-107); CHOLESTEROL LEVEL 147 MG/DL (<200); CREATININE FOR GFR 0.97 MG/DL (0.70-1.30); GLOMERULAR FILTRATION RATE > 60.0 (>49); GLUCOSE, FASTING 91 MG/DL (74-106); HDL CHOLESTEROL 61.2 MG/DL (>40); NON-HDL-C 85.8 MG/DL; POTASSIUM SERUM 4.9 MMOL/L (3.5-5.1); SODIUM LEVEL 138 MMOL/L (136-145); TOTAL PROTEIN 6.2 G/DL (5.7-8.2); TRIGLYCERIDES LEVEL 54 MG/DL (<150)
[2022-12-22 07:56] LABS: FERRITIN 160.1 NG/ML (10.5-307.3); FOLATE 13.7 NG/ML (>5.4)
[2022-12-22 07:57] LABS: FREE T4 1.07 NG/DL (0.89-1.76); VITAMIN B12 LEVEL 387 PG/ML (211-911)
== END ==
LOC: M LAB 06:43
PROVIDERS: ATTEND Physician Assistant
DX: R53.83 Other fatigue (principal); E78.00 Pure hypercholesterolemia, unspecified; D50.9 Iron deficiency anemia, unspecified

== ENCOUNTER → 2023-01-28 | Outpatient (CLI) | payer MEDICARE, BC | LOC: M PAIN 13:00 | PROVIDERS: ATTEND Anesthesiology | DX: M54.2 Cervicalgia (principal); M96.1 Postlaminectomy syndrome, not elsewhere classified; M79.12 Myalgia of auxiliary muscles, head and neck; M79.18 Myalgia, other site; J44.9 Chronic obstructive pulmonary disease, unspecified; I10 Essential (primary) hypertension; Z79.899 Other long term (current) drug therapy; F17.210 Nicotine dependence, cigarettes, uncomplicated ==

== ENCOUNTER → 2023-07-01 | Outpatient (CLI) | payer MEDICARE, BC ==
[2023-07-01 17:12] LABS: BASO # 0.1 10^3/uL (0.0-0.2); BASO % 0.7 % (0.0-1.0); EOS # 0.4 10^3/uL (0.0-0.5); EOS % 5.8 % (0.0-3.0); HEMATOCRIT 36.2 % (42.0-52.0); HEMOGLOBIN 11.6 g/dl (13.5-17.5); LYMPH # 2.4 10^3/uL (1.5-5.0); LYMPH % 34.8 % (24.0-44.0); MEAN CORPUSCULAR HEMOGLOBIN 27.8 pg (27.0-33.0); MEAN CORPUSCULAR VOLUME 86.6 fl (80.0-96.0); MONO # 0.7 10^3/uL (0.0-0.8); MONO % 9.4 % (2.0-8.0); NEUTROPHILS # 3.4 10^3/uL (1.5-8.5); PLATELET COUNT, AUTOMATED 311 10^3/uL (150-450); RED BLOOD COUNT 4.18 10^6/uL (4.30-6.10); WHITE BLOOD COUNT 6.9 10^3/uL (4.0-10.0)
[2023-07-01 17:46] LABS: ALBUMIN 4.1 G/DL (3.2-5.2); ALKALINE PHOSPHATASE 52 U/L (46-116); ALT/SGPT 12 U/L (7.0-40); AST/SGOT 14 U/L (<34); BILIRUBIN,TOTAL 0.4 MG/DL (0.3-1.2); BLOOD UREA NITROGEN 24 MG/DL (9-23); CALCIUM LEVEL 9.6 MG/DL (8.3-10.6); CARBON DIOXIDE LEVEL 30 MMOL/L (20-31); CHLORIDE LEVEL 108 MMOL/L (98-107); CREATININE FOR GFR 1.08 MG/DL (0.70-1.30); GLOMERULAR FILTRATION RATE > 60.0 (>49); GLUCOSE, FASTING 83 MG/DL (74-106); IRON (FE) 63 UG/DL (65-175); PERCENT SATURATION 22.6 % (19.7-50.0); POTASSIUM SERUM 5.3 MMOL/L (3.5-5.1); SODIUM LEVEL 139 MMOL/L (136-145); TOTAL IRON BINDING CAPACITY 279 UG/DL (250-425); TOTAL PROTEIN 6.7 G/DL (5.7-8.2)
[2023-07-01 17:48] LABS: FERRITIN 67.5 NG/ML (10.5-307.3)
== END ==
LOC: M WUC 13:21
PROVIDERS: ATTEND Physician Assistant
DX: E61.1 Iron deficiency (principal)

== ENCOUNTER → 2023-10-08 | Outpatient (REF) | payer MEDICARE, BC ==
[2023-10-08 18:36] LABS: BASO % 0.8 % (0.0-1.0); EOS # 0.3 10^3/uL (0.0-0.5); EOS % 5.9 % (0.0-3.0); HEMATOCRIT 36.8 % (42.0-52.0); HEMOGLOBIN 11.8 g/dl (13.5-17.5); LYMPH % 39.6 % (24.0-44.0); MEAN CORPUSCULAR HGB CONC 32.1 g/dl (32.0-36.5); MEAN CORPUSCULAR VOLUME 87.2 fl (80.0-96.0); MONO # 0.5 10^3/uL (0.0-0.8); MONO % 8.8 % (2.0-8.0); NEUTROPHILS # 2.3 10^3/uL (1.5-8.5); NEUTROPHILS % 44.7 % (36.0-66.0); PLATELET COUNT, AUTOMATED 281 10^3/uL (150-450); RED BLOOD COUNT 4.22 10^6/uL (4.30-6.10); WHITE BLOOD COUNT 5.1 10^3/uL (4.0-10.0)
[2023-10-08 19:08] LABS: ALBUMIN 3.9 G/DL (3.2-5.2); ALKALINE PHOSPHATASE 61 U/L (46-116); ALT/SGPT 23 U/L (7.0-40); AST/SGOT 11 U/L (<34); BILIRUBIN,TOTAL 0.4 MG/DL (0.3-1.2); BLOOD UREA NITROGEN 21 MG/DL (9-23); CALCIUM LEVEL 9.5 MG/DL (8.3-10.6); CARBON DIOXIDE LEVEL 29 MMOL/L (20-31); CHLORIDE LEVEL 107 MMOL/L (98-107); CREATININE FOR GFR 0.81 MG/DL (0.70-1.30); GLOMERULAR FILTRATION RATE > 60.0 (>49); GLUCOSE, FASTING 92 MG/DL (74-106); IRON (FE) 74 UG/DL (65-175); PERCENT SATURATION 27.3 % (19.7-50.0); PSA SCREENING 2.85 NG/ML (< 4.00); SODIUM LEVEL 139 MMOL/L (136-145); TOTAL IRON BINDING CAPACITY 271 UG/DL (250-425); TOTAL PROTEIN 6.9 G/DL (5.7-8.2)
[2023-10-08 19:11] LABS: FERRITIN 63.9 NG/ML (10.5-307.3)
== END ==
LOC: M SFHCLERA 09:34
PROVIDERS: ATTEND Family Medicine
DX: D64.9 Anemia, unspecified (principal); E87.5 Hyperkalemia; Z12.5 Encounter for screening for malignant neoplasm of prostate

== ENCOUNTER → 2023-10-13 | Outpatient (CLI) | payer MEDICARE, BC | LOC: M RAD 08:47 | PROVIDERS: ATTEND Physician Assistant | DX: R91.8 Other nonspecific abnormal finding of lung field (principal) ==

== ENCOUNTER → 2024-09-28 | Outpatient (REF) | payer MEDICARE, BC ==
[~2024-09-28] MED LIST changes: -AMBI10TA PO; -FLOM0.4C39 PO; +TAMS-18 PO; +ZOLP-533 PO
[2024-09-28 18:17] LABS: ALT/SGPT 23 U/L (7.0-40); AST/SGOT 22 U/L (<34); CALCIUM LEVEL 9.4 MG/DL (8.3-10.6); CARBON DIOXIDE LEVEL 30 MMOL/L (20-31); CHLORIDE LEVEL 104 MMOL/L (98-107); CHOLESTEROL LEVEL 159 MG/DL (<200); CHOLESTEROL RISK RATIO 2.35 (<5); CREATININE FOR GFR 0.86 MG/DL (0.70-1.30); GLOMERULAR FILTRATION RATE > 90.0 (>49); LDL CHOLESTEROL 84.2 MG/DL (<100); NON-HDL-C 91.6 MG/DL; POTASSIUM SERUM 4.8 MMOL/L (3.5-5.1); SODIUM LEVEL 142 MMOL/L (136-145); TRIGLYCERIDES LEVEL 37 MG/DL (<150)
[2024-09-28 18:19] LABS: BASO # 0.1 10^3/uL (0.0-0.2); BASO % 0.8 % (0.0-1.0); EOS # 0.2 10^3/uL (0.0-0.5); EOS % 3.5 % (0.0-3.0); LYMPH # 1.9 10^3/uL (1.5-5.0); LYMPH % 31.5 % (24.0-44.0); MONO # 0.5 10^3/uL (0.0-0.8); MONO % 7.6 % (2.0-8.0); NEUTROPHILS # 3.3 10^3/uL (1.5-8.5); NEUTROPHILS % 55.9 % (36.0-66.0); PLATELET COUNT, AUTOMATED 284 10^3/uL (150-450)
[2024-09-28 18:43] LABS: ESTIMATED AVERAGE GLUCOSE 103.0 MG/DL (60-110)
== END ==
LOC: M SFHCLERA 09:10
PROVIDERS: ATTEND Family Medicine
DX: Z00.00 Encounter for general adult medical examination without abnormal findings (principal); Z79.899 Other long term (current) drug therapy

== ENCOUNTER → 2024-11-10 | Outpatient (CLI) | payer MEDICARE, BC | LOC: M RAD 10:10 | PROVIDERS: ATTEND Family Medicine | DX: F17.210 Nicotine dependence, cigarettes, uncomplicated (principal) ==

== ENCOUNTER → 2025-02-05 | Outpatient (CLI) | payer MEDICARE, BC | LOC: M LAB 13:26 → M RAD 13:26 | PROVIDERS: ATTEND Family Medicine | DX: M43.22 Fusion of spine, cervical region (principal); M96.1 Postlaminectomy syndrome, not elsewhere classified; M47.812 Spondylosis without myelopathy or radiculopathy, cervical region; Z98.890 Other specified postprocedural states ==